=== PATIENT | male | born 1945 | race Caucasian/White ===

== ENCOUNTER → 2016-08-20 | Outpatient (CLI) | payer MEDICARE, OTHER ==
[2016-08-20 09:41] LABS: MEAN CORPUSCULAR HEMOGLOBIN 32.3 pg (27.0-33.0); MEAN CORPUSCULAR HGB CONC 33.4 g/dl (32.0-36.5); MEAN CORPUSCULAR VOLUME 96.5 fl (80.0-96.0); WHITE BLOOD COUNT 9.4 K/mm3 (4.0-10.0)
[2016-08-20 09:56] LABS: ALBUMIN 3.4 GM/DL (3.2-5.2); ALBUMIN/GLOBULIN RATIO 0.85 (1.00-1.93); ALKALINE PHOSPHATASE 113 U/L (45-117); ALT/SGPT 57 U/L (12-78); ANION GAP 8 MEQ/L (8-16); AST/SGOT 41 U/L (15-37); BILIRUBIN,TOTAL 0.9 MG/DL (0.2-1.0); BLOOD UREA NITROGEN 20 MG/DL (7-18); CARBON DIOXIDE LEVEL 28 MEQ/L (21-32); CHLORIDE LEVEL 104 MEQ/L (98-107); CHOLESTEROL LEVEL 157 MG/DL (<200); CREATININE FOR GFR 1.03 MG/DL (0.70-1.30); GLOMERULAR FILTRATION RATE > 60.0 (>42); GLUCOSE, FASTING 110 MG/DL (83-110); POTASSIUM SERUM 4.6 MEQ/L (3.5-5.1); SODIUM LEVEL 140 MEQ/L (136-145); TOTAL PROTEIN 7.4 GM/DL (6.4-8.2); TRIGLYCERIDES LEVEL 90 MG/DL (<150)
== END ==
LOC: M WUC 08:23
PROVIDERS: ATTEND Internal Medicine
DX: D69.6 Thrombocytopenia, unspecified (principal); E11.9 Type 2 diabetes mellitus without complications; E78.00 Pure hypercholesterolemia, unspecified

== ENCOUNTER → 2016-09-20 | Outpatient (CLI) | payer MEDICARE, OTHER ==
[2016-09-20 09:28] LABS: BLOOD UREA NITROGEN 21 MG/DL (7-18); CREATININE FOR GFR 1.05 MG/DL (0.70-1.30); GLOMERULAR FILTRATION RATE > 60.0 (>42)
== END ==
LOC: M WUC 08:12
PROVIDERS: ATTEND Internal Medicine Pulmonary Disease
DX: R91.8 Other nonspecific abnormal finding of lung field (principal)

== ENCOUNTER → 2016-09-30 | Outpatient (CLI) | payer MEDICARE, OTHER ==
[~2016-09-30] MED LIST: ISOVUE-370 76% 100ML VIAL (Q9967) As Ordered ONE
--- NOTE | 2016-09-30 10:28 | REP ---
CT of the chest with IV contrast: Comparison is the low-dose lung screening CT dated 04/13/2016. On the current study there is a 5 mm nodule posteriorly in the right upper lobe on image 33, unchanged in size shape or appearance from the comparison screening CT. There are no other lung masses or nodules. There is no mediastinal or hilar lymphadenopathy. There is no axillary lymphadenopathy. The thoracic aorta is unremarkable. Cardiac size normal. There is no pericardial effusion. The visualized upper abdominal contents are unremarkable except for A 1.5 cm cyst in the visualized portion of the right kidney. There is no adrenal mass. Impression: 5 mm right upper lobe lung nodule is stable from the 04/13/2016 CT. Additional follow-up for nodules this size according to Fleischner Society recommendations for a low risk patient is follow-up at 12 months, if no change, no further imaging is needed. For a high risk patient initial follow-up at 6-12 months and then again 18-24 months if there are no changes. The current study is 6 months from the original CT. Signed by Javy Franklin MD 09/30/2016 10:18 A
== END ==
LOC: M RAD 08:23
PROVIDERS: ATTEND Internal Medicine Pulmonary Disease
DX: R91.8 Other nonspecific abnormal finding of lung field (principal); R91.1 Solitary pulmonary nodule
CPT/HCPCS: 71260; Q9967

== ENCOUNTER → 2016-12-22 | Outpatient (CLI) | payer MEDICARE, OTHER ==
[2016-12-22 09:47] LABS: ALBUMIN 3.5 GM/DL (3.2-5.2); ALKALINE PHOSPHATASE 99 U/L (45-117); ALT/SGPT 40 U/L (12-78); ANION GAP 5 MEQ/L (8-16); AST/SGOT 36 U/L (15-37); BILIRUBIN,TOTAL 0.9 MG/DL (0.2-1.0); BLOOD UREA NITROGEN 14 MG/DL (7-18); CALCIUM LEVEL 9.2 MG/DL (8.8-10.2); CARBON DIOXIDE LEVEL 29 MEQ/L (21-32); CHLORIDE LEVEL 104 MEQ/L (98-107); CREATININE FOR GFR 1.13 MG/DL (0.70-1.30); GLOMERULAR FILTRATION RATE > 60.0 (>42); GLUCOSE, FASTING 148 MG/DL (83-110); POTASSIUM SERUM 4.6 MEQ/L (3.5-5.1); SODIUM LEVEL 138 MEQ/L (136-145); TOTAL PROTEIN 7.9 GM/DL (6.4-8.2)
[2016-12-22 10:10] LABS: MEAN CORPUSCULAR HEMOGLOBIN 31.5 pg (27.0-33.0); MEAN CORPUSCULAR HGB CONC 32.2 g/dl (32.0-36.5); MEAN CORPUSCULAR VOLUME 97.9 fl (80.0-96.0); RED CELL DISTRIBUTION WIDTH 13.4 % (11.5-14.5); WHITE BLOOD COUNT 8.9 K/mm3 (4.0-10.0)
== END ==
LOC: M WUC 08:02
PROVIDERS: ATTEND Internal Medicine
DX: E11.65 Type 2 diabetes mellitus with hyperglycemia (principal); D69.6 Thrombocytopenia, unspecified

== ENCOUNTER → 2017-03-21 | Outpatient (CLI) | payer MEDICARE, OTHER ==
[2017-03-21 14:29] LABS: BLOOD UREA NITROGEN 14 MG/DL (7-18); CREATININE FOR GFR 1.01 MG/DL (0.70-1.30); GLOMERULAR FILTRATION RATE > 60.0 (>42)
== END ==
LOC: M WUC 08:57
PROVIDERS: ATTEND Internal Medicine Pulmonary Disease
DX: J44.9 Chronic obstructive pulmonary disease, unspecified (principal)

== ENCOUNTER 2017-05-27 02:47 | Emergency (ER) | payer MEDICARE, OTHER ==
[~2017-05-27] VITALS: Ht 172.7 cm; Wt 111.4 kg
[2017-05-27] MEDS ORDERED: VENTAER IN (03:16)
[2017-05-27] MEDS ORDERED: INCR1INH IN (03:16)
[2017-05-27] MEDS ORDERED: TRUL0.5I SC (03:16)
[2017-05-27] MEDS ORDERED: BREO1INH INH (03:16)
[2017-05-27] MEDS ORDERED: GLIP1TAB51 PO (03:16)
[2017-05-27] MEDS ORDERED: LIPI20TA PO (03:16)
[2017-05-27] MEDS ORDERED: INSUDET SC (03:16)
[2017-05-27] MEDS ORDERED: ASPI81TA85 PO (03:16)
[2017-05-27] MEDS ORDERED: OMEP10CASR PO (03:16)
[2017-05-27] MEDS ORDERED: METF10004 PO (03:16)
[2017-05-27] MEDS ORDERED: LOPR1TAB6 PO (03:16)
[2017-05-27] MEDS ORDERED: ONDANSETRON 4MG/2ML VIAL (J2405) IV ONE (04:00)
[2017-05-27 04:21] LABS: BASO # 0.1 10^3/uL (0.0-0.2); BASO % 0.4 % (0.0-1.0); EOS # 0.1 10^3/uL (0.0-0.50); EOS % 0.6 % (0.0-3.0); IMMATURE GRANULOCYTE % 0.6 % (0-0); LYMPH # 0.9 10^3/uL (1.5-4.5); LYMPH % 6.7 % (24.0-44.0); MEAN CORPUSCULAR HEMOGLOBIN 30.3 pg (27.0-33.0); MEAN CORPUSCULAR HGB CONC 32.8 g/dl (32.0-36.5); MEAN CORPUSCULAR VOLUME 92.4 fl (80.0-96.0); MONO # 1.2 10^3/uL (0.0-0.8); MONO % 8.9 % (0.0-5.0); NEUTROPHILS # 11.6 10^3/uL (1.8-7.7); NEUTROPHILS % 82.8 % (36.0-66.0); PLATELET COUNT, AUTOMATED 56 10^3/uL (150-450); RED CELL DISTRIBUTION WIDTH 14.6 % (11.5-14.5)
[2017-05-27 04:22] LABS: IMMATURE PLATELET FRACTION % 16.5 % (0.0-10.9)
[2017-05-27 04:59] LABS: ALBUMIN 3.2 GM/DL (3.2-5.2); ALBUMIN/GLOBULIN RATIO 0.82 (1.00-1.93); BILIRUBIN,DIRECT 0.2 MG/DL (0.0-0.2); BILIRUBIN,TOTAL 0.7 MG/DL (0.2-1.0); TOTAL PROTEIN 7.1 GM/DL (6.4-8.2)
[2017-05-27 05:00] LABS: ANION GAP 10 MEQ/L (8-16); BLOOD UREA NITROGEN 25 MG/DL (7-18); CALCIUM LEVEL 8.7 MG/DL (8.8-10.2); CARBON DIOXIDE LEVEL 25 MEQ/L (21-32); CHLORIDE LEVEL 106 MEQ/L (98-107); GLOMERULAR FILTRATION RATE > 60.0 (>42); GLUCOSE, FASTING 187 MG/DL (83-110); POTASSIUM SERUM 4.4 MEQ/L (3.5-5.1); SODIUM LEVEL 141 MEQ/L (136-145)
--- NOTE | 2017-05-27 05:10 | REPUSA ---
CLINICAL HISTORY: Dizziness. TECHNIQUE: Multiple axial CT images were obtained through the brain without IV contrast material. COMMENTS: There is normal configuration of sella turcica. There are no intra or extra-axial collections. There is no mass effect or midline shift. There is no evidence of hematoma formation. No hydrocephalus is p resent. The ventricles are symmetrical. No abnormal calcifications are present. There is diffuse age-appropriate cerebellar and cerebral atrophy with proportionally dilated ventricl es and cortical sulci. There are bilateral periventricular and subcortical white matter hypolucencies compatible with mild c hronic microvascular disease. Otherwise, no significant focal abnormalities are seen either in the posterior fossa or supratentoria l compartment. IMPRESSION: 1. Age-appropriate cerebellar and cerebral atrophy. 2. Mild chronic microvascular disease. 3. No evidence of acute intracranial pathology. Thank you for your kind referral of this patient.
--- NOTE | 2017-05-27 08:10 | REP ---
Clinical: Chest pain . Comparison: 02/11/2009 . Findings: The mediastinum and cardiac silhouette are stable and within normal limits for portable technique. The lung lopez demonstrate diffuse chronic interstitial changes and superimposed atelectasis cannot be excluded. No effusion, or pneumothorax. Skeletal structures are intact. Impression: Chronic changes with possible superimposed atelectasis. Signed by Jr Vega MD 05/27/2017 08:01 A
--- NOTE | 2017-05-27 09:46 | ECGEPIP ---
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
--- NOTE | 2017-05-27 11:14 | ECGEPIP ---
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
[2017-05-27 11:24] VITALS: BP 125/58
== END 2017-05-27 11:53 | disposition home or self-care (01) ==
LOC: EDBD 02:47 → M ED 02:47
DX: R55 Syncope and collapse (principal); R53.1 Weakness; I25.10 Atherosclerotic heart disease of native coronary artery without angina pectoris; I25.2 Old myocardial infarction; I45.10 Unspecified right bundle-branch block; I44.4 Left anterior fascicular block; Z79.899 Other long term (current) drug therapy; Z79.82 Long term (current) use of aspirin; Z79.4 Long term (current) use of insulin
CPT/HCPCS: 36415; 70450; 71010; 80048; 80076; 81001; 82550; 82553; 83690; 84443; 84484; 85025; 85049; 85055; 87088; 87186; 93005; 93041; 94760; 96374; 99285; J2405

== ENCOUNTER 2017-05-29 16:14 | Emergency (ER) | payer MEDICARE, OTHER ==
[~2017-05-29] VITALS: Ht 179.1 cm; Wt 111.4 kg
[~2017-05-29 16:14] MED LIST changes: +ASPI81TA85 PO; +BREO1INH INH; +GLIP1TAB51 PO; +INCR1INH IN; +INSUDET SC; -ISOVUE-370 76% 100ML VIAL (Q9967) As Ordered ONE; +LIPI20TA PO; +LOPR1TAB6 PO; +METF10004 PO; +OMEP10CASR PO; +TRUL0.5I SC; +VENTAER IN
[2017-05-29] MEDS ORDERED: METF750T (16:28)
[2017-05-29] MEDS ORDERED: BREO1INH3 (16:28)
[2017-05-29] MEDS ORDERED: MECLIZINE 25 MG TABLET PO ONE (17:00)
[2017-05-29] MEDS ORDERED: NS 1,000 ML IV SCH (17:00)
[2017-05-29 17:12] LABS: BASO % 0.5 % (0.0-1.0); EOS # 0.2 10^3/uL (0.0-0.50); EOS % 1.8 % (0.0-3.0); IMMATURE GRANULOCYTE % 0.5 % (0-0); LYMPH # 1.3 10^3/uL (1.5-4.5); LYMPH % 14.5 % (24.0-44.0); MEAN CORPUSCULAR HEMOGLOBIN 30.5 pg (27.0-33.0); MEAN CORPUSCULAR HGB CONC 33.1 g/dl (32.0-36.5); MONO # 0.9 10^3/uL (0.0-0.8); MONO % 10.4 % (0.0-5.0); NEUTROPHILS # 6.3 10^3/uL (1.8-7.7); NEUTROPHILS % 72.3 % (36.0-66.0); RED CELL DISTRIBUTION WIDTH 14.7 % (11.5-14.5); WHITE BLOOD COUNT 8.7 10^3/uL (4.0-10.0)
[2017-05-29 17:25] LABS: PLATELET COUNT, AUTOMATED 65 10^3/uL (150-450)
[2017-05-29 17:27] LABS: IMMATURE PLATELET FRACTION % 14.6 % (0.0-10.9)
[2017-05-29 17:29] LABS: ALBUMIN 3.1 GM/DL (3.2-5.2); ALBUMIN/GLOBULIN RATIO 0.72 (1.00-1.93); ALKALINE PHOSPHATASE 104 U/L (45-117); ALT/SGPT 50 U/L (12-78); ANION GAP 6 MEQ/L (8-16); AST/SGOT 44 U/L (7-37); BILIRUBIN,DIRECT 0.2 MG/DL (0.0-0.2); BILIRUBIN,TOTAL 0.8 MG/DL (0.2-1.0); BLOOD UREA NITROGEN 18 MG/DL (7-18); CALCIUM LEVEL 8.6 MG/DL (8.8-10.2); CARBON DIOXIDE LEVEL 29 MEQ/L (21-32); CHLORIDE LEVEL 104 MEQ/L (98-107); CREATININE FOR GFR 1.05 MG/DL (0.70-1.30); GLOMERULAR FILTRATION RATE > 60.0 (>42); GLUCOSE, FASTING 160 MG/DL (83-110); POTASSIUM SERUM 4.1 MEQ/L (3.5-5.1); SODIUM LEVEL 139 MEQ/L (136-145); TOTAL PROTEIN 7.4 GM/DL (6.4-8.2)
--- NOTE | 2017-05-29 18:15 | ECGEPIP ---
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
--- NOTE | 2017-05-29 20:00 | REPUSA ---
MRI of the brain. Clinical history: memory problems. Technique: Multiecho multiplanar MRI images of the brain were obtained without administration of cont rast. Diffusion weighted images with ADC mapping was also obtained. Findings: The ventricles and sulci are symmetric bilaterally. The brain parenchyma demonstrates periventricular and subcortical white matter T2 hyperintense changes. There is no midline shift, mass effect, or ext ra-axial fluid collection. The midline intracranial structures do not demonstrate any gross abnormali ties. The cervical cranial junction is intact. The orbits are unremarkable. The visualized paranasal sinuses and mastoid air cells are clear. The osseous structures and superficial soft tissues are unre markable. The vascular structures demonstrate appropriate flow voids. Impression: No acute infarct or hemorrhage. Mild chronic small vessel ischemic disease.
--- NOTE | 2017-05-29 20:00 | REPUSA ---
Clinical history: neurological symptoms. Technique: Bytb-pe-[id number] MRA images of the brain were obtained without administration of contrast. 3 -D MIP images were also obtained. Findings: There is thrombosis of the left vertebral artery. Minimal reflux of arterial blood flow is seen in the distal left vertebral artery just proximal to the anastomosis from the base of her artery . The other vascular structures extending from the distal carotid arterial systems, through the circl e of Torres, demonstrate normal caliber and contour. There is no evidence of aneurysm, stenosis, or t hrombosis. Impression: 1. Suspected thrombosis of the majority of the left vertebral artery as described. 2. The intracerebral arteries including the tribe of Torres appears unremarkable.
[2017-05-30 01:03] VITALS: BP 129/86
--- NOTE | 2017-05-30 01:50 | REPUSA ---
HISTORY: Dizziness. COMPARISON: None. TECHNIQUE: Magnetic resonance angiography of the neck was performed at 1.5T with 2-D axial time-of-fl ight images and 3-D coronal ucdv-li-tjaecw images. Images are retrospectively targeted and reformatte d in three dimensions according to standard protocol. Stenoses were measured according to NASCET hernando oquendo. Source images were reviewed. RIGHT CAROTID ARTERIES: Normal right common carotid artery (CCA). Normal right common carotid bulb. 20% narrowing of the orig in of the right internal carotid (ICA) artery. Normal remaining visualized cervical portion of the ri ght internal carotid artery. Normal origin of the right external carotid artery (ECA). LEFT CAROTID ARTERIES: Normal left common carotid artery (CCA). Normal left common carotid bulb. 30% narrowing of the origin of the left internal carotid (ICA) artery. Normal remaining visualized cervical portion of the left internal carotid artery. Normal origin of the left external carotid artery (ECA). VERTEBRAL ARTERIES: Normal antegrade flow in the right vertebral artery without a hemodynamically significant stenosis. The absence of flow related enhancement of the left vertebral artery just above its takeoff. IMPRESSION: Occluded left vertebral artery. Atherosclerosis with mild bilateral narrowing of the origins of the internal carotid arteries as deta iled above.
[2017-05-30] MEDS ORDERED: MECL-68 PO (01:59)
== END 2017-05-30 02:37 | disposition home or self-care (01) ==
LOC: M ED 16:14
DX: I65.02 Occlusion and stenosis of left vertebral artery (principal); I10 Essential (primary) hypertension; E11.9 Type 2 diabetes mellitus without complications; J44.9 Chronic obstructive pulmonary disease, unspecified; Z79.51 Long term (current) use of inhaled steroids; Z79.84 Long term (current) use of oral hypoglycemic drugs; Z79.82 Long term (current) use of aspirin; Z79.899 Other long term (current) drug therapy; Z79.4 Long term (current) use of insulin; Z82.49 Family history of ischemic heart disease and other diseases of the circulatory system; Z87.891 Personal history of nicotine dependence
CPT/HCPCS: 36415; 70544; 70547; 70551; 80048; 80076; 82140; 82550; 82553; 84443; 84484; 85025; 85049; 85055; 93005; 93041; 94760; 96360; 96361; 99285; G0480

== ENCOUNTER → 2017-06-07 | Outpatient (REF) | payer MEDICARE, OTHER ==
[~2017-06-07] MED LIST changes: +BREO1INH3; +MECL-68 PO; +METF750T
== END ==
LOC: M SFHCPLAZ 15:25
PROVIDERS: ATTEND Internal Medicine
DX: E11.65 Type 2 diabetes mellitus with hyperglycemia (principal)

== ENCOUNTER → 2017-09-30 | Outpatient (CLI) | payer MEDICARE, OTHER ==
[2017-09-30 11:29] LABS: VITAMIN B12 LEVEL 457 PG/ML
== END ==
LOC: M WUC 08:08
DX: E03.9 Hypothyroidism, unspecified (principal); E53.9 Vitamin B deficiency, unspecified

== ENCOUNTER → 2017-09-30 | Outpatient (CLI) | payer MEDICARE, OTHER ==
[2017-09-30 09:13] LABS: HEMATOCRIT 45.7 % (42.0-52.0); MEAN CORPUSCULAR HEMOGLOBIN 31.1 pg (27.0-33.0); MEAN CORPUSCULAR HGB CONC 32.8 g/dl (32.0-36.5); MEAN CORPUSCULAR VOLUME 94.6 fl (80.0-96.0); RED BLOOD COUNT 4.83 10^6/uL (4.30-6.10); RED CELL DISTRIBUTION WIDTH 14.6 % (11.5-14.5); WHITE BLOOD COUNT 9.4 10^3/uL (4.0-10.0)
[2017-09-30 09:14] LABS: PLATELET COUNT, AUTOMATED 72 10^3/uL (150-450)
[2017-09-30 09:15] LABS: IMMATURE PLATELET FRACTION % 15.1 % (0.0-10.9)
[2017-09-30 10:06] LABS: ALBUMIN 3.2 GM/DL (3.2-5.2); ALBUMIN/GLOBULIN RATIO 0.76 (1.00-1.93); ALKALINE PHOSPHATASE 130 U/L (45-117); ALT/SGPT 45 U/L (12-78); ANION GAP 7 MEQ/L (8-16); AST/SGOT 47 U/L (7-37); BILIRUBIN,TOTAL 0.9 MG/DL (0.2-1.0); BLOOD UREA NITROGEN 17 MG/DL (7-18); CALCIUM LEVEL 8.7 MG/DL (8.8-10.2); CARBON DIOXIDE LEVEL 26 MEQ/L (21-32); CHLORIDE LEVEL 107 MEQ/L (98-107); CHOLESTEROL LEVEL 156 MG/DL (<200); CHOLESTEROL RISK RATIO 2.888 (<5); CREATININE FOR GFR 1.04 MG/DL (0.70-1.30); GLOMERULAR FILTRATION RATE > 60.0 (>42); GLUCOSE, FASTING 73 MG/DL (70-100); HDL CHOLESTEROL 54 MG/DL (>40); NON-HDL-C 102 MG/DL; POTASSIUM SERUM 4.5 MEQ/L (3.5-5.1); SODIUM LEVEL 140 MEQ/L (136-145); TOTAL PROTEIN 7.4 GM/DL (6.4-8.2); TRIGLYCERIDES LEVEL 70 MG/DL (<150)
[2017-09-30 10:18] LABS: MALB URINE SIEMENS 12.7 MG/L; MAU/CREAT RATIO 7.4 MCG/MG (0.0-30.0)
[2017-09-30 11:39] LABS: ESTIMATED AVERAGE GLUCOSE 140 MG/DL (60-110); HEMOGLOBIN A1c 6.5 %
== END ==
LOC: M WUC 08:04
DX: G47.30 Sleep apnea, unspecified (principal); D69.6 Thrombocytopenia, unspecified; E11.65 Type 2 diabetes mellitus with hyperglycemia; E78.00 Pure hypercholesterolemia, unspecified; E03.9 Hypothyroidism, unspecified; E53.9 Vitamin B deficiency, unspecified
CPT/HCPCS: 82746

== ENCOUNTER 2018-01-07 10:37 | Emergency (ER) | payer MEDICARE, OTHER ==
[2018-01-07] MEDS: PHENYLEPHRINE 0.5% NASAL SPRAY 15 ML (11:30)
[2018-01-07 11:49] LABS: BASO % 0.4 % (0.0-1.0); EOS # 0.2 10^3/uL (0.0-0.50); EOS % 2.3 % (0.0-3.0); HEMATOCRIT 43.7 % (42.0-52.0); HEMOGLOBIN 14.3 g/dl (13.5-17.5); IMMATURE GRANULOCYTE % 0.3 % (0-3.0); LYMPH # 0.8 10^3/uL (1.5-4.5); LYMPH % 8.6 % (24.0-44.0); MEAN CORPUSCULAR HEMOGLOBIN 32.1 pg (27.0-33.0); MEAN CORPUSCULAR HGB CONC 32.7 g/dl (32.0-36.5); MONO % 10.4 % (0.0-5.0); NEUTROPHILS # 7.3 10^3/uL (1.8-7.7); RED BLOOD COUNT 4.46 10^6/uL (4.30-6.10); RED CELL DISTRIBUTION WIDTH 16.4 % (11.5-14.5); WHITE BLOOD COUNT 9.3 10^3/uL (4.0-10.0)
[2018-01-07 11:51] LABS: PLATELET COUNT, AUTOMATED 60 10^3/uL (150-450)
[2018-01-07 11:52] LABS: IMMATURE PLATELET FRACTION % 12.4 % (0.0-10.9)
[2018-01-07] MEDS: NS 1,000 ML IV (13:00)
[2018-01-07 14:04] LABS: ALBUMIN 2.9 GM/DL (3.2-5.2); ALBUMIN/GLOBULIN RATIO 0.62 (1.00-1.93); ALKALINE PHOSPHATASE 154 U/L (45-117); ALT/SGPT 73 U/L (12-78); ANION GAP 7 MEQ/L (8-16); AST/SGOT 56 U/L (7-37); BILIRUBIN,DIRECT 0.3 MG/DL (0.0-0.2); BILIRUBIN,TOTAL 0.9 MG/DL (0.2-1.0); BLOOD UREA NITROGEN 31 MG/DL (7-18); CALCIUM LEVEL 8.9 MG/DL (8.8-10.2); CARBON DIOXIDE LEVEL 29 MEQ/L (21-32); CHLORIDE LEVEL 107 MEQ/L (98-107); GLOMERULAR FILTRATION RATE > 60.0 (>42); GLUCOSE, FASTING 94 MG/DL (70-100); POTASSIUM SERUM 4.8 MEQ/L (3.5-5.1); SODIUM LEVEL 143 MEQ/L (136-145); TOTAL PROTEIN 7.6 GM/DL (6.4-8.2)
== END 2018-01-07 14:55 | disposition home or self-care (01) ==
LOC: M ED 10:37
DX: R04.0 Epistaxis (principal); D69.6 Thrombocytopenia, unspecified; I10 Essential (primary) hypertension; E11.9 Type 2 diabetes mellitus without complications; K21.9 Gastro-esophageal reflux disease without esophagitis; E78.9 Disorder of lipoprotein metabolism, unspecified; Z87.891 Personal history of nicotine dependence; Z79.899 Other long term (current) drug therapy; Z79.02 Long term (current) use of antithrombotics/antiplatelets; Z79.82 Long term (current) use of aspirin; Z79.51 Long term (current) use of inhaled steroids; Z79.4 Long term (current) use of insulin
CPT/HCPCS: 70450

== ENCOUNTER → 2018-02-10 | Outpatient (CLI) | payer MEDICARE ==
[2018-02-10 12:11] LABS: HEMATOCRIT 43.1 % (42.0-52.0); MEAN CORPUSCULAR HEMOGLOBIN 32.6 pg (27.0-33.0); MEAN CORPUSCULAR HGB CONC 32.5 g/dl (32.0-36.5); MEAN CORPUSCULAR VOLUME 100.2 fl (80.0-96.0); RED CELL DISTRIBUTION WIDTH 14.9 % (11.5-14.5); WHITE BLOOD COUNT 9.5 10^3/uL (4.0-10.0)
[2018-02-10 12:12] LABS: PLATELET COUNT, AUTOMATED 65 10^3/uL (150-450)
[2018-02-10 12:13] LABS: IMMATURE PLATELET FRACTION % 18.1 % (0.0-10.9)
[2018-02-10 12:31] LABS: ALBUMIN/GLOBULIN RATIO 0.61 (1.00-1.93); ALKALINE PHOSPHATASE 117 U/L (45-117); ALT/SGPT 70 U/L (12-78); ANION GAP 7 MEQ/L (8-16); AST/SGOT 63 U/L (7-37); BILIRUBIN,TOTAL 0.9 MG/DL (0.2-1.0); BLOOD UREA NITROGEN 22 MG/DL (7-18); CALCIUM LEVEL 9.3 MG/DL (8.8-10.2); CARBON DIOXIDE LEVEL 28 MEQ/L (21-32); CHLORIDE LEVEL 106 MEQ/L (98-107); CREATININE FOR GFR 0.98 MG/DL (0.70-1.30); GLOMERULAR FILTRATION RATE > 60.0 (>42); GLUCOSE, FASTING 79 MG/DL (70-100); POTASSIUM SERUM 4.6 MEQ/L (3.5-5.1); SODIUM LEVEL 141 MEQ/L (136-145); TOTAL PROTEIN 7.9 GM/DL (6.4-8.2)
[2018-02-10 12:33] LABS: ESTIMATED AVERAGE GLUCOSE 123 MG/DL (60-110); HEMOGLOBIN A1c 5.9 %
== END ==
LOC: M WUC 08:03
DX: G47.30 Sleep apnea, unspecified (principal); E11.65 Type 2 diabetes mellitus with hyperglycemia; D69.6 Thrombocytopenia, unspecified
CPT/HCPCS: 80053

== ENCOUNTER → 2018-07-20 | Outpatient (CLI) | payer MEDICARE, OTHER ==
[~2018-07-20] MED LIST changes: +ARIC1TAB2 PO; -BREO1INH3; +BREO1INH3 INH; +CITA20TA4 PO; +CLOP75TA2 PO; +GLIP10TA18 PO; -GLIP1TAB51 PO; +LEVE1INJ5; +METO1TAB7 PO; +RANI300T; -VENTAER IN; +VENTAER INH; +ZANT300T9 PO
[2018-07-20 10:32] LABS: ALBUMIN 3.1 GM/DL (3.2-5.2); ALT/SGPT 81 U/L (12-78); BILIRUBIN,TOTAL 0.9 MG/DL (0.2-1.0); BLOOD UREA NITROGEN 18 MG/DL (7-18); CALCIUM LEVEL 8.9 MG/DL (8.8-10.2); CARBON DIOXIDE LEVEL 27 MEQ/L (21-32); CHLORIDE LEVEL 104 MEQ/L (98-107); CREATININE FOR GFR 0.97 MG/DL (0.70-1.30); GLOMERULAR FILTRATION RATE > 60.0 (>42); GLUCOSE, FASTING 103 MG/DL (70-100); POTASSIUM SERUM 4.2 MEQ/L (3.5-5.1); SODIUM LEVEL 140 MEQ/L (136-145); TOTAL PROTEIN 7.1 GM/DL (6.4-8.2)
[2018-07-20 10:46] LABS: MALB URINE SIEMENS 22.6 MG/L; MAU/CREAT RATIO 14.2 MCG/MG (0.0-30.0)
[2018-07-20 11:21] LABS: HEMOGLOBIN A1c 6.7 %
== END ==
LOC: M WUC 08:05
PROVIDERS: ATTEND Internal Medicine
DX: E11.65 Type 2 diabetes mellitus with hyperglycemia (principal)

== ENCOUNTER → 2018-08-09 | Outpatient (REF) | payer MEDICARE, OTHER ==
[2018-08-09 15:42] LABS: HEMATOCRIT 48.9 % (42.0-52.0); HEMOGLOBIN 15.6 g/dl (13.5-17.5); MEAN CORPUSCULAR HEMOGLOBIN 32.3 pg (27.0-33.0); MEAN CORPUSCULAR HGB CONC 31.9 g/dl (32.0-36.5); MEAN CORPUSCULAR VOLUME 101.2 fl (80.0-96.0); RED BLOOD COUNT 4.83 10^6/uL (4.30-6.10); WHITE BLOOD COUNT 15.8 10^3/uL (4.0-10.0)
[2018-08-09 15:59] LABS: BLOOD UREA NITROGEN 18 MG/DL (7-18); CALCIUM LEVEL 8.9 MG/DL (8.8-10.2); CARBON DIOXIDE LEVEL 27 MEQ/L (21-32); CHLORIDE LEVEL 101 MEQ/L (98-107); CREATININE FOR GFR 1.05 MG/DL (0.70-1.30); GLOMERULAR FILTRATION RATE > 60.0 (>42); GLUCOSE, FASTING 115 MG/DL (70-100); MAGNESIUM LEVEL 1.9 MG/DL (1.8-2.4); POTASSIUM SERUM 3.5 MEQ/L (3.5-5.1); SODIUM LEVEL 138 MEQ/L (136-145)
[2018-08-09 16:01] LABS: PLATELET COUNT, AUTOMATED 80 10^3/uL (150-450)
[2018-08-09 16:24] LABS: CLOSTRIDIUM DIFFICILE PCR NEGATIVE (NEGATIVE)
== END ==
LOC: M SFHCPLAZ 12:11
PROVIDERS: ATTEND Internal Medicine
DX: R19.7 Diarrhea, unspecified (principal); E86.0 Dehydration
CPT/HCPCS: 36415; 80048; 83735; 85027; 85049; 85055; 87493; G0463

== ENCOUNTER → 2018-12-11 | Outpatient (CLI) | payer MEDICARE, OTHER ==
[~2018-12-11] MED LIST changes: -CITA20TA4 PO; +CITA20TA6 PO
[2018-12-11 13:34] LABS: ALBUMIN 2.8 GM/DL (3.2-5.2); ALT/SGPT 60 U/L (12-78); BILIRUBIN,TOTAL 1.2 MG/DL (0.2-1.0); BLOOD UREA NITROGEN 20 MG/DL (7-18); CALCIUM LEVEL 8.5 MG/DL (8.8-10.2); CARBON DIOXIDE LEVEL 30 MEQ/L (21-32); CHLORIDE LEVEL 105 MEQ/L (98-107); CHOLESTEROL LEVEL 119 MG/DL (<200); CHOLESTEROL RISK RATIO 2.333 (<5); CREATININE FOR GFR 1.03 MG/DL (0.70-1.30); GLOMERULAR FILTRATION RATE > 60.0 (>42); GLUCOSE, FASTING 94 MG/DL (70-100); HDL CHOLESTEROL 51 MG/DL (>40); LDL CHOLESTEROL 57 MG/DL (<100); MAGNESIUM LEVEL 1.8 MG/DL (1.8-2.4); NON-HDL-C 68 MG/DL; POTASSIUM SERUM 3.7 MEQ/L (3.5-5.1); SODIUM LEVEL 139 MEQ/L (136-145); TOTAL PROTEIN 7.5 GM/DL (6.4-8.2); TRIGLYCERIDES LEVEL 57 MG/DL (<150)
[2018-12-11 13:35] LABS: BASO % 0.4 % (0.0-1.0); EOS # 0.4 10^3/uL (0.0-0.50); EOS % 4.3 % (0.0-3.0); HEMOGLOBIN 15.1 g/dl (13.5-17.5); MEAN CORPUSCULAR HEMOGLOBIN 33.9 pg (27.0-33.0); MEAN CORPUSCULAR HGB CONC 32.8 g/dl (32.0-36.5); MEAN CORPUSCULAR VOLUME 103.4 fl (80.0-96.0); MONO % 10.4 % (0.0-5.0); NEUTROPHILS # 7.2 10^3/uL (1.8-7.7); NEUTROPHILS % 74.6 % (36.0-66.0); RED BLOOD COUNT 4.45 10^6/uL (4.30-6.10); WHITE BLOOD COUNT 9.6 10^3/uL (4.0-10.0)
[2018-12-11 13:50] LABS: PLATELET COUNT, AUTOMATED 51 10^3/uL (150-450)
[2018-12-11 14:15] LABS: HEMOGLOBIN A1c 6.2 %
== END ==
LOC: M WUC 08:27
PROVIDERS: ATTEND Internal Medicine
DX: D69.6 Thrombocytopenia, unspecified (principal); E11.65 Type 2 diabetes mellitus with hyperglycemia; E78.00 Pure hypercholesterolemia, unspecified; I25.10 Atherosclerotic heart disease of native coronary artery without angina pectoris

== ENCOUNTER 2019-02-19 12:20 | Emergency (ER) | payer MEDICARE, OTHER ==
[~2019-02-19 12:20] MED LIST changes: -INCR1INH IN; +INCR1INH INH; -MECL-68 PO; +MECL1TAB31 PO; -METF750T; +METF750T36
[2019-02-19] MEDS ORDERED: POTA10CA32 PO (12:35)
[2019-02-19 13:08] LABS: BASO # 0.1 10^3/uL (0.0-0.2); BASO % 0.5 % (0.0-1.0); EOS # 0.4 10^3/uL (0.0-0.50); EOS % 2.9 % (0.0-3.0); HEMATOCRIT 44.6 % (42.0-52.0); HEMOGLOBIN 15.1 g/dl (13.5-17.5); LYMPH # 0.9 10^3/uL (1.5-4.5); LYMPH % 6.7 % (24.0-44.0); MEAN CORPUSCULAR HEMOGLOBIN 34.2 pg (27.0-33.0); MEAN CORPUSCULAR HGB CONC 33.9 g/dl (32.0-36.5); MEAN CORPUSCULAR VOLUME 101.1 fl (80.0-96.0); MONO # 1.4 10^3/uL (0.0-0.8); MONO % 10.1 % (0.0-5.0); NEUTROPHILS % 78.7 % (36.0-66.0); RED BLOOD COUNT 4.41 10^6/uL (4.30-6.10)
[2019-02-19 13:09] LABS: PLATELET COUNT, AUTOMATED 61 10^3/uL (150-450)
[2019-02-19] MEDS ORDERED: DERMABOND TOPICAL SKIN ADHESIVE TOP ONE (13:15)
[2019-02-19 13:20] LABS: INR 1.09; PARTIAL THROMBOPLASTIN TIME 32.1 SECONDS (25.0-38.4); PROTHROMBIN TIME 13.8 SECONDS (11.8-14.0)
[2019-02-19 13:31] LABS: BLOOD UREA NITROGEN 18 MG/DL (7-18); CALCIUM LEVEL 8.2 MG/DL (8.8-10.2); CARBON DIOXIDE LEVEL 21 MEQ/L (21-32); CHLORIDE LEVEL 108 MEQ/L (98-107); CK-MB VALUE MASS 2.2 NG/ML (<3.6); CPK CREATINE PHOSPHOKINASE 112 U/L (39-308); CREATININE FOR GFR 0.92 MG/DL (0.70-1.30); GLOMERULAR FILTRATION RATE > 60.0 (>42); GLUCOSE, FASTING 117 MG/DL (70-100); MB/CK RELATIVE INDEX 1.96 (< OR =4); POTASSIUM SERUM 3.8 MEQ/L (3.5-5.1); SODIUM LEVEL 135 MEQ/L (136-145); TROPONIN I 0.06 NG/ML (< 0.10)
[2019-02-19] MEDS ORDERED: ADACEL/BOOSTRIX VACCINE (DIPHTH/PERTUSS/ACELL/TETANUS)0.5ML SYR (90715) IM ONE (13:45)
--- NOTE | 2019-02-19 14:17 | REP ---
CT of the maxillofacial bones without contrast Indication: Fall. Comparison: CT head of the same date. Technique: Axial CT of the maxillofacial bones was performed without contrast. Bone reformatted images were provided in the axial, coronal and sagittal planes. Findings: There is comminuted fracture of the right nasal bone. The anterior fracture fragment is angulated to the left. There is partial opacification of the anterior nasal passages. There is thickening of the overlying soft tissues. There is rightward deviation of the nasal septum. There is decreased opacification of the nasopharynx when compared to the same day CT head. There is buckle deformity of the lateral wall of the left maxillary sinus. There is dependent opacification within both maxillary sinuses. There is minimal dependent opacification of the right sphenoid sinus. Remaining bones of the face including the zygomas, freeman of the orbits, and mandible are intact. The pterygoid plates are intact. Suboptimal evaluation of the teeth secondary to streak artifact from dental amalgam. Impression: Fracture of the right nasal bone with overlying soft tissue swelling, presumably acute. Correlation can be made for point tenderness and nasal hematoma. Buckle deformity of the lateral wall of the left maxillary sinus, age indeterminate. Partial opacification of the maxillary sinuses and right sphenoid sinus. Electronically Signed by Tamar Pacheco MD 02/19/2019 02:09 P
--- NOTE | 2019-02-19 14:29 | REP ---
CT of the chest without IV contrast: Comparison is 09/30/2016. There is no pneumothorax or hemothorax. The patchy confluent areas of increased density in the lower lobes and left upper lobe as an interval change. This is nonspecific and could represent progressive fibrosis, acute infiltrates or possibly pulmonary contusion, or combination of these. There is no mediastinal hematoma. The unenhanced thoracic aorta is unremarkable. Cardiac size is upper normal. There is no pericardial effusion. There is questionably a nondisplaced fracture at the sternomanubrial junction. This should be correlated with clinical point tenderness. No vertebral fractures are identified. No clavicle, scapula, or rib fractures are identified. Impression: There are new patchy confluent areas of increased density in the lower lobes and left upper lobe as an interval change. These are nonspecific and likely represent progressive fibrosis, although acute infiltrates or pulmonary contusions cannot be entirely discounted. There is no hemothorax. There is no mediastinal hematoma. No pericardial effusion. No pneumothorax. There is questionably a nondisplaced fracture of the sternum at the sternomanubrial junction. This should be correlated with clinical point tenderness. No other fractures are identified. Electronically Signed by Javy Franklin MD 02/19/2019 02:20 P
[2019-02-19] MEDS ORDERED: PERC5TAB12 PO (15:59)
--- NOTE | 2019-02-19 16:22 | REP ---
CT of the cervical spine without contrast Indication: Head injury. Comparison: None Technique: Axial CT of the cervical spine was performed without contrast. Axial coronal and sagittal bone reformatted images were provided. Findings: There is no evidence of acute fracture or subluxation within the cervical spine. The craniocervical junction is intact. There is extensive multilevel degenerative changes including multilevel disc osteophyte complexes, the space narrowing and facet arthropathy., worse at C4-C5 and C5-C6 with spinal canal narrowing. There is multilevel bridging anterior osteophyte formation. The paraspinal soft tissues are within normal limits. Note is made of opacification within the nasopharynx. Impression: No acute fracture or subluxation of the cervical spine. Extensive multilevel cervical spondylosis, most notably at C4-C5 and C5-C6 with narrowing of the spinal canal. Note is made of opacification of the nasal passages and fluid within the maxillary sinuses. Electronically Signed by Tamar Pacheco MD 02/19/2019 01:13 P
--- NOTE | 2019-02-19 16:23 | REP ---
CT of the head without contrast Clinical indication: Head injury. Comparison: CT head 01/07/2018. Technique: Axial CT of the head was performed without contrast. Findings: There is no visible soft tissue swelling or calvarial fracture. There is no evidence of acute intracranial hemorrhage. There are a similar hypodensities within the. Ventricular white matter which are nonspecific but suggestive of microvascular ischemic disease. There is similar cerebral volume loss. The ventricles are symmetric. There is no midline shift. The basal cisterns are patent. There are intracranial vascular calcifications. There is fluid within the maxillary sinuses, and nasopharynx and nasal passages. Facial bones are not assessed. The mastoid air cells are clear. Impression: No visible soft tissue swelling or calvarial fracture. Opacification of the nasal pharynx and the nasal passages, raise concern for nasal fracture. The nasal bones are not assessed. No acute intracranial hemorrhage. Electronically Signed by Tamar Pacheco MD 02/19/2019 01:06 P
[2019-02-19 16:25] VITALS: BP 97/64
--- NOTE | 2019-02-19 20:46 | ECGEPIP ---
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
--- NOTE | 2019-02-20 07:14 | ED PDOC ---
Post-Departure Follow-Up dr steward faxed formalreport of ct head, c spine, chest for fu Jeancarlos De La Cruz MD Feb 20, 2019 07:14
[2019-02-23] MEDS ORDERED: ACET-908 PO (13:01)
[2019-02-23] MEDS ORDERED: ALBU83IN INH (13:01)
== END 2019-02-19 16:28 | disposition home or self-care (01) ==
LOC: M ED 12:20
DX: S02.2XXA Fracture of nasal bones, initial encounter for closed fracture (principal); S22.20XA Unspecified fracture of sternum, initial encounter for closed fracture; S02.401A Maxillary fracture, unspecified side, initial encounter for closed fracture; S01.21XA Laceration without foreign body of nose, initial encounter; W19.XXXA Unspecified fall, initial encounter; Y92.511 Restaurant or cafe as the place of occurrence of the external cause; Y93.9 Activity, unspecified; Y99.9 Unspecified external cause status; R00.0 Tachycardia, unspecified; I45.10 Unspecified right bundle-branch block; I44.4 Left anterior fascicular block; M47.812 Spondylosis without myelopathy or radiculopathy, cervical region; R04.0 Epistaxis; I51.9 Heart disease, unspecified; E11.9 Type 2 diabetes mellitus without complications; I10 Essential (primary) hypertension; R26.81 Unsteadiness on feet; Z87.891 Personal history of nicotine dependence; Z79.899 Other long term (current) drug therapy

== ENCOUNTER 2019-02-25 05:46 | Inpatient (IN) | payer MEDICARE, OTHER ==
[~2019-02-25] VITALS: Ht 177.8 cm; Wt 90.1 kg
[~2019-02-25 05:46] MED LIST changes: +ACET-908 PO; +ALBU83IN INH; +PERC5TAB12 PO; +POTA10CA32 PO
[2019-02-25] MEDS ORDERED: NS 1,000 ML IV ONE (06:45)
[2019-02-25 07:03] LABS: BASO # 0.1 10^3/uL (0.0-0.2); BASO % 0.5 % (0.0-1.0); EOS # 0.9 10^3/uL (0.0-0.50); EOS % 7.6 % (0.0-3.0); HEMOGLOBIN 12.1 g/dl (13.5-17.5); LYMPH # 1.7 10^3/uL (1.5-5.0); LYMPH % 14.5 % (24.0-44.0); MEAN CORPUSCULAR HGB CONC 32.7 g/dl (32.0-36.5); MEAN CORPUSCULAR VOLUME 103.9 fl (80.0-96.0); MONO # 1.4 10^3/uL (0.0-0.8); MONO % 11.8 % (0.0-5.0); NEUTROPHILS # 7.7 10^3/uL (1.5-8.5); NEUTROPHILS % 64.9 % (36.0-66.0); RED BLOOD COUNT 3.56 10^6/uL (4.30-6.10); WHITE BLOOD COUNT 11.9 10^3/uL (4.0-10.0)
--- NOTE | 2019-02-25 07:21 | ECGEPIP ---
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
[2019-02-25 07:22] LABS: ALBUMIN 2.4 GM/DL (3.2-5.2); ALT/SGPT 51 U/L (12-78); BILIRUBIN,DIRECT 0.4 MG/DL (0.0-0.2); BILIRUBIN,TOTAL 1.3 MG/DL (0.2-1.0); BLOOD UREA NITROGEN 18 MG/DL (7-18); CALCIUM LEVEL 7.9 MG/DL (8.8-10.2); CARBON DIOXIDE LEVEL 24 MEQ/L (21-32); CHLORIDE LEVEL 107 MEQ/L (98-107); GLOMERULAR FILTRATION RATE > 60.0 (>42); GLUCOSE, FASTING 130 MG/DL (70-100); NT-PRO BNP 124 PG/ML (<125); POTASSIUM SERUM 4.3 MEQ/L (3.5-5.1); SODIUM LEVEL 139 MEQ/L (136-145); TOTAL PROTEIN 6.6 GM/DL (6.4-8.2)
[2019-02-25 07:23] LABS: PLATELET COUNT, AUTOMATED 74 10^3/uL (150-450)
--- NOTE | 2019-02-25 08:19 | REP ---
Clinical: Bibasilar rales. Technique: PA and lateral. Comparison: 05/27/2017 Findings: Mediastinum and cardiac silhouette are stable. Lung lopez demonstrate diffuse chronic changes related to COPD and interstitial disease. Superimposed lower lobe infiltrates cannot be excluded. No effusion. No pneumothorax. Skeletal structures appear grossly intact. Impression: Chronic COPD and interstitial disease. Superimposed basilar opacities cannot be excluded. Electronically Signed by Jr Vega MD 02/25/2019 08:11 A
[2019-02-25] MEDS ORDERED: ATOR40TA75 PO (08:28)
[2019-02-25] MEDS ORDERED: NITR4TASL SL (08:31)
[2019-02-25] MEDS ORDERED: MOM 30ML SUSPENSION UDC PO PRN (09:45)
[2019-02-25] MEDS ORDERED: MAALOX 30 ML SUSP *UDC PO PRN (09:45)
[2019-02-25] MEDS: NS 1,000 ML IV SCH ×2 (11:26→21:20)
[2019-02-25] MEDS ORDERED: NS 500 ML IV PRN (13:45)
[2019-02-25 14:09] VITALS: BP 116/69
[2019-02-25] MEDS: ONDANSETRON 4MG/2ML VIAL (J2405) IV PRN ×2 (14:20→21:16)
[2019-02-25] MEDS: DOCUSATE SODIUM 100 MG CAP PO SCH ×2 (15:30→22:32)
[2019-02-25] MEDS: CitaloPRAM (CeleXA) 20 MG TAB PO SCH (15:39)
[2019-02-25] MEDS: DONEPEZIL 5 MG TAB PO SCH (15:39)
[2019-02-25] MEDS: ATORVASTATIN 20 MG TAB PO SCH (15:39)
[2019-02-25] MEDS: POTASSIUM CHLORIDE 10 MEQ SR TABLET PO SCH (15:39)
[2019-02-25 15:42] LABS: HEMATOCRIT 31.1 % (42.0-52.0); HEMOGLOBIN 10.2 g/dl (13.5-17.5)
[2019-02-25] MEDS: SYMBICORT 160/4.5MCG INHALER 6GM INH SCH ×2 (15:57→20:20)
[2019-02-25] MEDS ORDERED: GLUCAGON FOR INJ 1 MG VIAL (J1610) SC PRN (19:15)
[2019-02-25] MEDS ORDERED: DEXTROSE 50% 50 ML SYRINGE IV PRN (19:15)
[2019-02-25] MEDS ORDERED: GLUCOSE 4 GM CHEW TABLET PO PRN (19:15)
--- NOTE | 2019-02-25 19:22 | HPEPDOC ---
General Date of Admission 02/25/19 Date of Service: Feb 25, 2019 Primary Care Physician: Saul Mejia Other Providers Dr Aurora Mckeon Attending Physician: ALFONSO LARKIN DO Chief Complaint The patient is a 73-year-old male admitted with a reason for visit of Nose Bleed. Source: Patient, Family History of Present Illness 73 yo presented to ED with epistaxis. Epistaxis was controlled in the ED and he was going to be discharged from the ED when he had sudden episode of symptomatic orthostatic hypotension manifested by lightheaded, tachycardia. Patient states he has had 3 episodes of lightheaded/dizzy and near syncope (01/21,01/26 and 02/09); He had syncopal episode on 02/19 inwhich he felt lightheaded but before he could sit down, had passed out, face planted on floor and fractured his sternum and broke his nose. Patient states he is scheduled for nasal fracture repair with Dr Bhandari on 02/27/19. Patient stopped his plavix today in anticipation of surgery. He states Dr Simon told him not to be off plavix more than 2 days because of increased risk of stroke. Patient states he has a left vertebral art denise occlusion and has chronic intermittent lightheadedness associated with it. He states he has had a full syncope workup in the past. He initially did not want to stay in hospital but agreed after convinced by . He states cardiology told him to stop his lopressor because of hypotension and that Dr iSmon wants his blood pressure closer to systolic 120. In the ED patient had intermittent labile hypotension with orthostatics supine 123/68 - pulse 108 and sitting 80/48- pulse 112 (blood pressures performed by attending physician) with symptoms. Home Medications Scheduled Atorvastatin Calcium (Atorvastatin Calcium) 40 Mg Tablet, 40 MG PO DAILY, (Reported) Citalopram Hydrobromide (Citalopram HBr) 20 Mg Tab, 20 MG PO DAILY, (Reported) Clopidogrel Bisulfate (Clopidogrel) 75 Mg Tab, 75 MG PO QHS, (Reported) PT TO HOLD FOR SURGERY Donepezil HCl (Aricept) 10 Mg Tab, 5 MG PO DAILY, (Reported) Dulaglutide (Trulicity) 1.5 Mg/0.5 Ml Inj, 1.5 MG SC QWEEK, (Reported) TUESDAY Fluticasone/Vilanterol (Breo Ellipta 200-25 Mcg INH) 1 Inh Inh, 1 PUFF INH DAILY, (Reported) Potassium Chloride (Potassium Chloride) 10 Meq Capsule.er, 10 MEQ PO DAILY, (Reported) Ranitidine HCl (Zantac) 300 Mg Tab, 1 TAB PO QHS, (Reported) Umeclidinium [place] (Incruse Ellipta) 62.5 Mcg/Inh Inh, 1 PUFF INH DAILY, (Reported) Scheduled PRN Albuterol Sulf (Albuterol Sulfate) 2.5 Mg/3 Ml Vial.neb, 2.5 MG INH Q4H PRN for SHORTNESS OF BREATH, (Reported) Albuterol Sulfate (Ventolin Hfa) 108 Mcg/Act Aer, 2 PUFF INH QID PRN for SHORTNE SS OF BREATH, (Reported) Nitroglycerin (Nitrostat) 0.4 Mg Tab.subl, 0.4 MG SL NITRO PRN for CHEST PAIN, (Reported) Oxycodone HCl/Acetaminophen (Percocet 5-325 mg Tablet) 1 Each Tablet, 1 TAB PO Q4HP PRN for PAIN Allergies Coded Allergies: No Known Allergies (Unverified , 02/23/19) Past Medical History Medical History TYPE 2 DIABETES 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 WITH 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- 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 CURRENT USE OF INSULIN CORONARY ARTERY DISEASE GASTROESOPHAGEAL REFLUX HYPERCHOLESTEROLEMIA SLEEP APNEA ALLERGIC RHINITIS THROMBOCYTOPENIA FATTY LIVER MEMORY LOSS LUNG NODULE RIGHT BUNDLE BRANCH BLOCK (RBBB) C DIFF enterocolitis 07/2018 - resolved SURGICAL HISTORY TONSILLECTOMY AGE 20 RIGHT CARPAL TUNNEL RELEASE IN THE PAST ATTEMPTED STENT PLACEMENT, RCA 1995 RIGHT EYE CATARACT EXTRACTION WITH LENS IMPLANT 08/2011 COLONOSCOPY 10/2011 LEFT EYE CATARACT EXTRACION WITH LENS IMPLANT 09/2012 L3-S1 DECOMPRESSION WITH L4-5 IN SITU FUSION WITH LOCAL FUSION 10/2012 FAMILY HISTORY FATHER HAD SEVERAL IA'S, FIRST AT AGE 74. MOTHER HAD CVA, CHF AND CAD. SOCIAL HISTORY: former smoker (quit 1999), no EtOH use, Review of Systems Constitutional: Reports: Fatigue ENT: Reports: Sinus Congestion, Epistaxis Pulmonary: Reports: Cough Cardiovascular: Reports: Chest Pain, Lt Headedness Hematologic: Reports: Bleeding Excessively Other systems 10 systems reviewed and negative except as above or as per HPI Physical Examination General Exam: Positive: Alert, Cooperative, Mild Distress (with orthostatic hypotension/lightheaded when sitting) Eye Exam: Positive: PERRLA, Conjunctiva & lids normal, EOMI, Other Eye Symptoms (bruising to periorbital area bilaterally) ENT Exam: Positive: Mucous membr. moist/pink, Pharynx Normal, Other ENT (deviated septum, nasal turbinates occluded by dried clot) Neck Exam: Positive: Supple, +2 carotid pulse wo bruit Chest Exam: Positive: Clear to auscultation, Normal air movement, Rales, Diminished (pain with deep breathing (hx of sternum fracture)); Negative: Rhonchi, Wheezing Heart Exam: Positive: Tachycardic Telemetry: Positive: Tachycardia, Other Telemetry: (EKG reivewed with sinus tac h) Abdomen Exam: Positive: Normal bowel sounds, Soft (NT ND NABS) Extremity Exam: Positive: Normal pulses; Negative: Clubbing, Cyanosis, Edema Skin Exam: Positive: Nl turgor and temperature Neuro Exam: Positive: Normal Speech, Strength at 5/5 X4 ext, Normal Tone, Sensation Intact, Cranial Nerves 3-12 NL Psych Exam: Positive: Mental status NL, Mood NL, Memory Intact, Oriented x 3 Other physical findings CXR Impression: Chronic COPD and interstitial disease. Superimposed basilar opacities cannot be excluded. Vital Signs Vital Signs Date Time Temp Pulse Resp B/P (MAP) Pulse Ox O2 Delivery O2 Flow Rate FiO2 02/25/19 07:14 104 88 02/25/19 06:44 111/70 (84) 02/25/19 05:55 96.9 20 Room Air Laboratory Data Labs 24H Laboratory Tests 2 02/25/19 05:54: Immature Granulocyte % (Auto) 0.7, White Blood Count 11.9H, Red Blood Count 3.56L, Hemoglobin 12.1L, Hematocrit 37.0L, Mean Corpuscular Volume 103.9H, Mean Corpuscular Hemoglobin 34.0H, Mean Corpuscular Hemoglobin Concent 32.7, Red Cell Distribution Width 14.4, Platelet Count 74L, Neutrophils (%) (Auto) 64.9, Lymphocytes (%) (Auto) 14.5L, Monocytes (%) (Auto) 11.8H, Eosinophils (%) (Auto) 7.6H, Basophils (%) (Auto) 0.5, Neutrophils # (Auto) 7.7, Lymphocytes # (Auto) 1.7, Monocytes # (Auto) 1.4H, Eosinophils # (Auto) 0.9H, Basophils # (Auto) 0.1, Nucleated Red Blood Cells % (auto) 0.0, Immature Platelet Fraction 12.7H, Anion Gap 8, Glomerular Filtration Rate > 60.0, Calcium Level 7.9L, Aspartate Amino Transf (AST/SGOT) 61H, Alanine Aminotransferase (ALT/SGPT) 51, Alkaline Lizzie sphatase 135H, Total Bilirubin 1.3H, Direct Bilirubin 0.4H, WS-Opx-N-Type Natriuretic Peptide 124, Total Protein 6.6, Albumin 2.4L, Albumin/Globulin Ratio 0.57L CBC/BMP Laboratory Tests 02/25/19 05:54 Red Blood Count 3.56 L, Mean Corpuscular Volume 103.9 H, Mean Corpuscular Hemo globin 34.0 H, Mean Corpuscular Hemoglobin Concent 32.7, Red Cell Distribution Width 14.4, Neutrophils (%) (Auto) 64.9, Lymphocytes (%) (Auto) 14.5 L, Monocytes (%) (Auto) 11.8 H, Eosinophils (%) (Auto) 7.6 H, Basophils (%) (Auto) 0.5, Neutrophils # (Auto) 7.7, Lymphocytes # (Auto) 1.7, Monocytes # (Auto) 1.4 H, Eosinophils # (Auto) 0.9 H, Basophils # (Auto) 0.1 Assessment/Plan 1) Recurrent falls prior to admission - PT/OT consult 2) Orthostatic hypotension - symptomatic with syncope and vertebrobasilar insufficiency off lopressor,start gentle IVF - avoid CHF; daily orthostatic BP. NOT A CANDIDATE for midodrine as pt supine blood pressure may raise too high 3) Nasal fracture with epistaxis - stable currently. plan to discharge 02/26 in anticipation of surgery 02/27 if remains hemodyanmically stable with no further orthostatic changes in BP. serial H/H if starts bleeding. Consider ENT consult if starts to bleed. hold plavix/asa in anticipation of surgery 4) Sternum fracture from prior traumatic fall/syncope - symptomatic care 5) COPD - without exacerbation - nebs, IS 6) Diabetes - on alf insulin. check ac/hs and cover with SSI. he is on once a week trulicity and if BS increase, consider levemir 7) thrombocytopenia - hold plavix, no lovenox or heparin. hold ASA. Continue all other home medications as prior to admission - except hold plavix CODE STATUS: FULL DVT Prophylaxis: no chemical prophylaxis due to thrombocytopenia and bleeding; use SCD ADDENDUM AT 1330 - called to floor for nasal bleeding. Patient getting out of ED litter transfering to flood bed when had sudden nasal bleeding (trickling bright red blood) followed by vomiting of approx 60cc of old clots. ENT consulted. Plan / VTE VTE Prophylaxis Ordered?: Yes ALFONSO LARKIN DO Feb 25, 2019 09:52
[2019-02-25] MEDS: HumaLOG INSULIN (NovoLOG) PER UNIT SC SCH (21:00)
[2019-02-25 22:00] VITALS: BP 103/62
[2019-02-25] MEDS: FAMOTIDINE 20 MG TAB PO SCH (22:32)
[2019-02-26 06:00] VITALS: BP_SYST 102; BP_SYST 78; BP_DIAS 52; BP_DIAS 62
[2019-02-26] MEDS: NS 1,000 ML IV SCH ×3 (07:04→22:19)
[2019-02-26 07:07] LABS: HEMATOCRIT 25.4 % (42.0-52.0); HEMOGLOBIN 8.4 g/dl (13.5-17.5); MEAN CORPUSCULAR HEMOGLOBIN 33.6 pg (27.0-33.0); MEAN CORPUSCULAR HGB CONC 33.1 g/dl (32.0-36.5); MEAN CORPUSCULAR VOLUME 101.6 fl (80.0-96.0); WHITE BLOOD COUNT 10.9 10^3/uL (4.0-10.0)
[2019-02-26 07:13] LABS: PLATELET COUNT, AUTOMATED 76 10^3/uL (150-450)
[2019-02-26 07:14] LABS: INR 1.18; PROTHROMBIN TIME 14.7 SECONDS (11.8-14.0)
[2019-02-26 07:31] LABS: BLOOD UREA NITROGEN 35 MG/DL (7-18); CALCIUM LEVEL 7.5 MG/DL (8.8-10.2); CARBON DIOXIDE LEVEL 26 MEQ/L (21-32); CHLORIDE LEVEL 110 MEQ/L (98-107); CREATININE FOR GFR 0.82 MG/DL (0.70-1.30); GLOMERULAR FILTRATION RATE > 60.0 (>42); GLUCOSE, FASTING 122 MG/DL (70-100); POTASSIUM SERUM 4.3 MEQ/L (3.5-5.1); SODIUM LEVEL 140 MEQ/L (136-145)
[2019-02-26] MEDS: POTASSIUM CHLORIDE 10 MEQ SR TABLET PO SCH (07:48)
[2019-02-26] MEDS: DONEPEZIL 5 MG TAB PO SCH (07:48)
[2019-02-26] MEDS: HumaLOG INSULIN (NovoLOG) PER UNIT SC SCH ×4 (07:49→20:57)
[2019-02-26] MEDS: ATORVASTATIN 20 MG TAB PO SCH (07:49)
[2019-02-26] MEDS: CitaloPRAM (CeleXA) 20 MG TAB PO SCH (07:50)
[2019-02-26] MEDS: DOCUSATE SODIUM 100 MG CAP PO SCH ×2 (07:50→20:00)
[2019-02-26] MEDS ORDERED: PREVNAR 13 VACCINE SYRINGE (CPT CODE:90670) IM ONE (09:00)
[2019-02-26] MEDS ORDERED: ENOXAPARIN 40 MG/0.4 ML SYRINGE (J1650) SC SCH (09:00)
[2019-02-26] MEDS: SYMBICORT 160/4.5MCG INHALER 6GM INH SCH ×2 (09:50→20:10)
[2019-02-26] MEDS ORDERED: NS 1,000 ML IV SCH (10:52)
[2019-02-26] MEDS ORDERED: diphenhydrAMINE 25 MG CAP PO ONE (11:00)
[2019-02-26] MEDS ORDERED: ACETAMINOPHEN TAB 650MG DOSE (2X325MG) PO ONE (11:00)
[2019-02-26 14:00] VITALS: BP 102/61
--- NOTE | 2019-02-26 15:54 | IPNPDOC ---
Text Note Date of Service The patient was seen on 02/26/19. NOTE S: Family concerned because patient with intermittent slurred speech, mental delay and confusion yesterday. Has not had any further epistaxis since yesterday afternoon. Still with significant orthostatic hypotension. He denies chest pain, +SOB and pain along sternum is positional. no orthopnea. + nausea (patient states swallowed lots of nasal bleeding/clots) and some melena from nasal bleeding. O: Vitals as below Vital Signs Label Value Date Time Pulse 108 02/26/19 0600 Pulse 114 02/26/19 0600 Pulse 101 02/26/19 0600 Blood Pressure Assessment 102/62 (75) 02/26/19 0600 Location Left Arm Source Automatic Cuff (NIBP) Position Supine Blood Pressure Assessment 78/52 (61) 02/26/19 0600 Location Left Arm Source Automatic Cuff (NIBP) Position Sitting Pulse 119 02/25/19 1409 Blood Pressure Assessment 116/69 (85) 02/25/19 1409 Respiratory Rate 22 bpm 02/25/19 1409 General: pale appearing, AAOx3, speech clear, NAD; wearing oxygen (NC) and in supine position HEENT: conjunctival palor; nasal septal deviation with dried blood in nares Heart - tachy 110, no murmur, regular; no palpable sternum crepitus LCTA no W/R/R , no CVA tenderness; Ext: no edema Skin: slow cap refill, pale appearing A/P: 1) Recurrent falls prior to admission - PT/OT consult 2) Orthostatic hypotension - symptomatic with syncope and vertebrobasilar insufficiency off lopressor,start gentle IVF - avoid CHF; daily orthostatic BP. NOT A CANDIDATE for midodrine as pt supine blood pressure may raise too high continue IVF and transfuse 1 unit pRBC or until hgb above 10 given his underl humera cardiac and nuerological history 3) Nasal fracture with epistaxis - repeat bleeding episode yesterday and H/H drop to 8.5; transfuse 1 unit; consult Dr Bhandari (case discussed on 02/25/19). surgery 02/27 for nasal fracture/bleeding scheduled - hold plavix/asa in anticipation of surgery; NPO after midnight 4) Class III hemorrhagic shock due to epistaxis and manifested by hypotension (SBP less than 90), tachycardia (pulse 100-120) and intermittent confusion - improving. continue IVF. tranfuse pRBC. epistaxis is stopped for now and plan on surgery tomorrow. PRN fluid bolus for SBP under 90 5) Sternum fracture from prior traumatic fall/syncope - symptomatic care 5) COPD - without exacerbation - nebs, IS (will need pulmonary toilet, and increased nebs/IS post operatively to prevent pneumonia) 6) Diabetes - on group home insulin. check ac/hs and cover with SSI. he is on once a week trulicity and if BS increase, consider levemir; 7) thrombocytopenia - Platelets 76 (no transfusion for platelets unless less than 50 for surgery) hold plavix, no lovenox or heparin. hold ASA. Continue all other home medications as prior to admission - except hold plavix Disposition: post op, will need to consult PT/OT and possible ARU. Anticipate patient hospital stay 3-5 days. CODE STATUS: FULL DVT Prophylaxis: no chemical prophylaxis due to thrombocytopenia and bleeding; use SCD VS,Fishbone, I+O VS, Fishbone, I+O Laboratory Tests 02/25/19 15:18 02/26/19 06:40 Red Blood Count 2.50 L, Mean Corpuscular Volume 101.6 H, Mean Corpuscular Hemogl obin 33.6 H, Mean Corpuscular Hemoglobin Concent 33.1, Red Cell Distribution Width 14.5, Calcium Level 7.5 L Vital Signs Date Time Temp Pulse Resp B/P (MAP) Pulse Ox O2 Delivery O2 Flow Rate FiO2 02/26/19 09:00 2.0 02/26/19 06:00 97.6 101 18 95 02/26/19 06:00 102/62 (75) 78/52 (61) 02/25/19 13:00 Room Air I&O- Last 24 Hours up to 6 AM 02/26/19 06:00 Intake Total 3750 ml Output Total 300 ml Balance 3450 ml ALFONSO LARKIN DO Feb 26, 2019 11:00
[2019-02-26 17:16] LABS: HEMATOCRIT 26.4 % (42.0-52.0); HEMOGLOBIN 8.8 g/dl (13.5-17.5)
[2019-02-26] MEDS ORDERED: POTASSIUM CHLORIDE 10 MEQ SR TABLET PO ONE (17:30)
[2019-02-26] MEDS ORDERED: FUROSEMIDE 40 MG/4 ML VIAL (J1940) IV ONE (17:30)
[2019-02-26] MEDS: FAMOTIDINE 20 MG TAB PO SCH (20:01)
[2019-02-26 20:11] VITALS: O2SAT 93
[2019-02-26 22:00] VITALS: BP 98/62
[2019-02-26] MEDS ORDERED: NS 1,000 ML IV ONE (22:00)
--- NOTE | 2019-02-26 22:56 | IPNPDOC ---
Subjective Date Seen The patient was seen on 02/26/19. Subjective Chief Complaint/HPI Low blood pressure General: Reports: Fatigue Constitutional: Reports: Fatigue Eyes: Denies: Pain, Vision change, Conjunctivae inflammation, Eyelid inflammation, Redness, Other ENT: Reports: Sinus Congestion, Epistaxis; Denies: Head Aches, Ear Pain, Dysphagia Skin: Denies: Rash, Lesions, Breakdown Pulmonary: Reports: Cough Cardiovascular: Reports: Lt Headedness Gastrointestinal: Denies: Nausea, Vomiting, Abdominal Pain, Diarrhea, Constipation Genitourinary: Denies: Dysuria, Frequency, Incontinence, Retention Hematologic: Reports: Bleeding Excessively Endocrine: Denies: Polydipsia, Polyphagia, Polyuria, Heat Intolerance, Cold Intolerance, Other Endocrine Sx Musculoskeletal: Denies: Neck Pain, Back Pain, Joint Pain, Muscle Pain, Spasms Neurological: Denies: Weakness, Numbness, Change in speech, Confusion Psych: Reports: Mood Normal Objective Physical Examination General Exam: Positive: Alert, Cooperative, No Acute Distress Eye Exam: Positive: PERRLA, Conjunctiva & lids normal, EOMI, Other Eye Symptoms (bruising to periorbital area bilaterally) ENT Exam: Positive: Mucous membr. moist/pink, Pharynx Normal, Other ENT (deviated septum, nasal turbinates occluded by dried clot) Neck Exam: Positive: Supple, +2 carotid pulse wo bruit Chest Exam: Positive: Normal air movement, Rales, Diminished (pain with deep breathing (hx of sternum fracture)); Negative: Rhonchi, Wheezing Heart Exam: Positive: Tachycardic Telemetry: Positive: Tachycardia, Other Telemetry: (EKG reivewed with sinus tach) Abdomen Exam: Positive: Normal bowel sounds, Soft (NT ND NABS) Extremity Exam: Positive: Normal pulses; Negative: Clubbing, Cyanosis, Edema Skin Exam: Positive: Nl turgor and temperature Neuro Exam: Positive: Normal Speech, Strength at 5/5 X4 ext, Normal Tone, Sensation Intact, Cranial Nerves 3-12 NL Psych Exam: Positive: Mental status NL, Mood NL, Memory Intact, Oriented x 3 Assessment /Plan Assessment 73 year old elderly male has orthostatic hypotension with manual systolic blood pressure 88 after he received 2 units of 3 unit of PRBC's ordered blood transfusion due to his Hematocrit dropping from 15 to 8. His drop in hematocrit is due to his epistasis from his fractured nose caused by his fall when he had an episode of syncope and collapse last month at his home. During that episode of skipping collapse. He also fractured his sternum. This patient at bedside. He is alert and oriented 3, PERRLA 2, lungs are diminished bilateral bases, lobes inspiratory, abdomen soft, nondistended, nontender, with active bowel sounds all quadrants, bluish black bruising right. Orbital and nasal bone, no pedal or lower leg edema, +2 pedal pulses bilateral. Nurses at bedside setting up third unit of PRBC for transfusion. Vital signs are stable. Patient is afebrile. Orthostatic Hypotension-Acute on Chronic -Start 2nd Peripheral IV -Bolus 1L of Normal Saline -Start Fluid Resuscitation IVF Normal Saline at 125 cc/hr after 1L fluid bolus -Monitor blood pressure q 30 min x 4; then q hour x 4 then q 4 hours -Repeat CBC one hour post 3rd PRBC unit -Monitor for recurrent epistasis. -[id number] IV push hold until patient's systolic blood pressure is above 110. Will give after third unit of PRBC. Discussed treatment plan with patient, answered patient's questions regarding treatment plan to his satisfaction. Patient agrees with treatment plan. I will continue to assess patient throughout the evening. Regarding his blood pressure and fluid resuscitation. Attending abreast of patients' health status Patient received an additional 1L bolus of Normal Saline and his blood did improve to 110 systolic manual and was given 5 mg IV which is half of ordered dose so that his blood pressure does not bottom out. Plan/VTE VTE Prophylaxis Ordered?: No (Patient already on VTE regimen) VTE Exclusion Pharmacological: N/A:VTE Prophy Ordered (Patient is already receiving Lovenox 40 mg SC daily) Plan IVF: Initiate, Change (Bolus 1000 ML of Normal Saline) Diet: Continue Current Activity: Continue Current Diagnostics: Check Labs, Repeat Labs in AM VS, I&O, 24H, Fishbone Vital Signs/I&O Vital Signs Date Time Temp Pulse Resp B/P (MAP) Pulse Ox O2 Delivery O2 Flow Rate FiO2 02/26/19 20:11 93 Nasal Cannula 2.0 02/26/19 14:00 98.3 103 19 102/61 (75) I&O- Last 24 Hours up to 6 AM 02/26/19 06:00 Intake Total 3750 ml Output Total 300 ml Balance 3450 ml Laboratory Data 24H LABS Laboratory Tests 2 02/26/19 06:40: Nucleated Red Blood Cells % (auto) 0.0, Immature Platelet Fraction 7.0, Prothrombin Time 14.7H, Prothromb Time International Ratio 1.18, Anion Gap 4L, Glomerular Filtration Rate > 60.0, Blood Urea Nitrogen 35#H, Creatinine 0.82, Sodium Level 140, Potassium Level 4.3, Chloride Level 110H, Carbon Dioxide Level 26, Calcium Level 7.5L 02/26/19 12:47: Bedside Glucose (Misc Panel) 198H 02/26/19 16:27: Bedside Glucose (Misc Panel) 138H 02/26/19 20:48: Bedside Glucose (Misc Panel) 111H CBC/BMP Laboratory Tests 02/26/19 06:40 Red Blood Count 2.50 L, Mean Corpuscular Volume 101.6 H, Mean Corpuscular Hemoglobin 33.6 H, Mean Corpuscular Hemoglobin Concent 33.1, Red Cell Distribution Width 14.5, Calcium Level 7.5 L 02/26/19 16:44 KRISSY KANG Feb 26, 2019 22:54
[2019-02-27] VITALS (14 sets, daily range): BP systolic 104–135; BP diastolic 52–71; O2SAT 94
[2019-02-27] MEDS: NS 1,000 ML IV SCH ×4 (00:15→21:53)
[2019-02-27 01:49] LABS: HEMATOCRIT 31.1 % (42.0-52.0); HEMOGLOBIN 10.4 g/dl (13.5-17.5)
[2019-02-27] MEDS ORDERED: FUROSEMIDE 20 MG/2 ML VIAL (J1940) IV ONE (03:00)
[2019-02-27 07:05] LABS: HEMATOCRIT 33.9 % (42.0-52.0); HEMOGLOBIN 11.3 g/dl (13.5-17.5); MEAN CORPUSCULAR HGB CONC 33.3 g/dl (32.0-36.5); MEAN CORPUSCULAR VOLUME 99.1 fl (80.0-96.0); RED BLOOD COUNT 3.42 10^6/uL (4.30-6.10); WHITE BLOOD COUNT 8.9 10^3/uL (4.0-10.0)
[2019-02-27] MEDS: SYMBICORT 160/4.5MCG INHALER 6GM INH SCH ×2 (07:21→19:43)
[2019-02-27 07:23] LABS: INR 1.17; PROTHROMBIN TIME 14.6 SECONDS (11.8-14.0)
[2019-02-27] MEDS: HumaLOG INSULIN (NovoLOG) PER UNIT SC SCH ×4 (07:30→20:29)
[2019-02-27 07:34] LABS: ALT/SGPT 33 U/L (12-78); BILIRUBIN,TOTAL 1.8 MG/DL (0.2-1.0); BLOOD UREA NITROGEN 19 MG/DL (7-18); CALCIUM LEVEL 7.3 MG/DL (8.8-10.2); CARBON DIOXIDE LEVEL 25 MEQ/L (21-32); CHLORIDE LEVEL 112 MEQ/L (98-107); CREATININE FOR GFR 0.74 MG/DL (0.70-1.30); GLOMERULAR FILTRATION RATE > 60.0 (>42); GLUCOSE, FASTING 99 MG/DL (70-100); POTASSIUM SERUM 3.6 MEQ/L (3.5-5.1); SODIUM LEVEL 142 MEQ/L (136-145); TOTAL PROTEIN 5.6 GM/DL (6.4-8.2)
[2019-02-27 07:42] LABS: PLATELET COUNT, AUTOMATED 51 10^3/uL (150-450)
--- NOTE | 2019-02-27 08:47 | IPN ---
DATE OF SERVICE: 02/27/2019 The patient still complains of dizziness when he gets up. He remains orthostatic and on intravenous (IV) fluid. No chest pain, pressure, tightness, or palpitations. No recurrent episodes of epistaxis. The patient has no rectal bleeding, melena, or black tarry stools. The patient did have an episode of some slight shortness of breath, given Lasix 5 mg IV at 3 a.m. this morning with output of 275. Current weight is 85.7. Vital signs: Temperature 97.5, pulse 84, respiratory rate 16, blood pressure 135/68, 92% 2 liters nasal cannula. Generally, patient has Ortez's signs with ecchymosis around the eyes. He has some septal deviation, dry blood in the nares bilaterally. Heart: S1, S2. Sinus tachycardia. Lungs: Clear to auscultation. No wheezing, rales, or rhonchi. Abdomen: Soft, nontender, nondistended. Positive bowel sounds. No rebound or guarding. Extremities: No cyanosis, clubbing. No pitting edema. LABORATORY DATA: White count 8.9, hemoglobin 11, hematocrit 33, platelet count 51, previous platelet count of 76. Sodium 142, potassium 3.6, chloride 112, bicarbonate 25, BUN 19, creatinine 0.74, glucose 99. Total bilirubin 1.8, AST 38, ALT 33, alkaline phosphatase 101, total protein 5.6, albumin of 2. INR 1.17, PT 14.6. CURRENT MEDICATIONS: - hyperglycemic protocol - Pepcid - normal saline bolus - Tylenol 650 as needed - Milk of Magnesia - Mylanta - Proventil - Percocet - atorvastatin - Colace - Celexa - Aricept - potassium - Symbicort ASSESSMENT AND PLAN: This is a 73-year-old with diabetes, CAD, reflux, hypercholesterolemia, sleep apnea, allergic rhinitis, chronic thrombocytopenia, fatty liver, memory loss, lung nodules, chronic right bundle branch block, Clostridium (C) difficile July 2018, presented with epistaxis after he had fallen due to orthostatic hypotension due to left vertebral artery occlusion. The patient has chronic intermittent lightheadedness and has been on chronic Plavix due to risk of stroke. The patient had a fall at home with a fracture sternum and nasal deviation and fracture. CURRENT ISSUES: 1. Acute blood anemia secondary to epistaxis, resolved after blood transfusion. The patient had 3 units of red blood cell (RBC) transfused with hemoglobin increasing from 8.4 to 11.3. Platelet count is still low but no active signs of bleeding. Plavix has been held. 2. Left vertebral artery occlusion. At risk for stroke. Off Plavix due to acute blood loss anemia from fall and epistaxis. 3. Orthostatic hypotension due to vertebral artery occlusion. Currently on IV fluid boluses. Not a candidate for midodrine due to vertebral artery occlusion and risk of increased uncontrolled hypertension. 4. Hemorrhagic shock due to epistaxis. 5. Sternal fracture from prior traumatic fall and syncope symptomatic care. Physical therapy and acute rehab. 6. Chronic obstructive pulmonary disease (COPD) without exacerbation. Currently on pulmonary toilet, nebulizers, and incentive spirometry. 7. Thrombocytopenia. No transfusions unless platelet count is less than 50 for surgery. Plavix has been held due to recent active bleeding and blood loss anemia. No Lovenox or heparin, and hold the aspirin. 8. Type 2 diabetes. On hypoglycemic protocol, long-term insulin, before food, nightly fingersticks, on Trulicity once a week. May consider Levemir if needed. DISPOSITION: Await further recommendations from Dr. Bhandari, ENT surgeon, currently physical therapy (PT), occupational therapy (OT) consulted and possible acute rehabilitation unit (ARU).
[2019-02-27] MEDS: CitaloPRAM (CeleXA) 20 MG TAB PO SCH (08:50)
[2019-02-27] MEDS: ATORVASTATIN 20 MG TAB PO SCH (08:50)
[2019-02-27] MEDS: POTASSIUM CHLORIDE 10 MEQ SR TABLET PO SCH (08:50)
[2019-02-27] MEDS: DOCUSATE SODIUM 100 MG CAP PO SCH ×2 (08:50→20:28)
[2019-02-27] MEDS: DONEPEZIL 5 MG TAB PO SCH (08:51)
[2019-02-27] MEDS ORDERED: ONDANSETRON 4MG/2ML VIAL (J2405) IV PRN (13:45)
[2019-02-27] MEDS ORDERED: LR 1,000 ML IV SCH (13:45)
[2019-02-27] MEDS ORDERED: oxyCODONE 5MG TAB PO PRN (13:45)
[2019-02-27] MEDS: fentaNYL 100 MCG/2 ML INJECTION (J3010) IV PRN ×2 (13:51→13:56)
[2019-02-27] MEDS: FAMOTIDINE 20 MG TAB PO SCH (20:28)
[2019-02-27] MEDS: ACETAMINOPHEN TAB 650MG DOSE (2X325MG) PO PRN (21:52)
[2019-02-28] VITALS (7 sets, daily range): BP systolic 96–137; BP diastolic 57–77; O2SAT 93
[2019-02-28] MEDS: NS 1,000 ML IV SCH ×2 (04:28→11:20)
[2019-02-28 06:01] LABS: HEMOGLOBIN 11.2 g/dl (13.5-17.5); MEAN CORPUSCULAR HEMOGLOBIN 33.3 pg (27.0-33.0); MEAN CORPUSCULAR HGB CONC 32.9 g/dl (32.0-36.5); MEAN CORPUSCULAR VOLUME 101.2 fl (80.0-96.0); RED BLOOD COUNT 3.36 10^6/uL (4.30-6.10); WHITE BLOOD COUNT 7.7 10^3/uL (4.0-10.0)
[2019-02-28 06:08] LABS: PLATELET COUNT, AUTOMATED 48 10^3/uL (150-450)
[2019-02-28 06:18] LABS: BLOOD UREA NITROGEN 14 MG/DL (7-18); CALCIUM LEVEL 7.6 MG/DL (8.8-10.2); CARBON DIOXIDE LEVEL 27 MEQ/L (21-32); CHLORIDE LEVEL 110 MEQ/L (98-107); CREATININE FOR GFR 0.69 MG/DL (0.70-1.30); GLOMERULAR FILTRATION RATE > 60.0 (>42); GLUCOSE, FASTING 105 MG/DL (70-100); POTASSIUM SERUM 3.7 MEQ/L (3.5-5.1); SODIUM LEVEL 141 MEQ/L (136-145)
[2019-02-28] MEDS ORDERED: ACETAMINOPH W/CODEINE #3 TAB UD PO PRN (06:30)
[2019-02-28] MEDS: SYMBICORT 160/4.5MCG INHALER 6GM INH SCH (07:25)
[2019-02-28] MEDS: HumaLOG INSULIN (NovoLOG) PER UNIT SC SCH ×4 (07:30→20:46)
[2019-02-28] MEDS: DOCUSATE SODIUM 100 MG CAP PO SCH ×2 (08:09→20:49)
[2019-02-28] MEDS: ATORVASTATIN 20 MG TAB PO SCH (08:10)
[2019-02-28] MEDS: CitaloPRAM (CeleXA) 20 MG TAB PO SCH (08:10)
[2019-02-28] MEDS: POTASSIUM CHLORIDE 10 MEQ SR TABLET PO SCH (08:10)
[2019-02-28] MEDS: DONEPEZIL 5 MG TAB PO SCH (08:11)
[2019-02-28] MEDS: ACETAMINOPHEN TAB 650MG DOSE (2X325MG) PO PRN ×2 (08:11→19:52)
[2019-02-28] MEDS: INCRUSE ELLIPTA INH SCH (11:23)
[2019-02-28] MEDS: VILANTEROL INH SCH (11:23)
[2019-02-28] MEDS: FLUTICASONE FUROATE INH SCH (11:23)
--- NOTE | 2019-02-28 15:06 | RO ---
DATE OF PROCEDURE: 02/27/2019 PREOPERATIVE DIAGNOSES: Nasal deformity. Nasal septal deviation. Epistaxis. POSTOPERATIVE DIAGNOSES: Nasal deformity. Nasal septal deviation. Epistaxis. OPERATIVE PROCEDURE: Nasal cautery. Septoplasty. Nasal infracture. SURGEON: Leighton Bhandari MD ENVIRONMENTAL STUDIES PROFESSOR: ANESTHESIA: FINDINGS: There were some vessels on the septum on the left side which were bleeding, which were cauterized. The septum was markedly deviated towards the right side as a result of the fracture. DESCRIPTION OF PROCEDURE: I used pledgets of adrenaline 1:1000 and infiltrated with lidocaine with epinephrine. I made an incision anteriorly on the right side and elevated the mucosa off of the cartilage. I removed a portion of the cartilage and the ethmoid plate, which were deviated towards the right side. Once this was done, the septum was straight. I closed that incision with #4-0 chromic. I then re-fractured the nose and positioned the nose in the midline. Patient tolerated the procedure well. I did cauterize the left side of the nose. I put some NasoPore in the nose on both sides and then applied an Aquaplast cast. Patient transferred to the recovery room in excellent condition. ESTIMATED BLOOD LOSS: 5 mL
--- NOTE | 2019-02-28 17:22 | IPNPDOC ---
Date Seen The patient was seen on 02/28/19. Progress Note SUBJECTIVE: pt still c/o orthostasis lightheadedness and some dizziness when he sits and stands from supine position in his bed. he denies any recurrent epistaxis, hematemesis, or hemoptysis. Per ENT, Dr. Bhandari, ok to resume pt's plavix today. no sob, chest pain, pressure, tightness. worried about low blood pressure,and risk of falling again at home. Despite recent IVfluids, pt remains with orthostatic. c/o 6/10 pain in sternum from recent fall, denies diaphoresis, or feeling of impending doom. OBJECTIVE: Vital signs: Temperature 98.1 pulse92, respiratory rate 18 , blood [id number] 1/74 94, % 4 liters nasal cannula. Generally, ecchymosis around the eyes. nasal packing and bandages. Heart: S1, S2. Sinus tachycardia. Lungs: Clear to auscultation. No wheezing, rales, or rhonchi. Abdomen: Soft, nontender, nondistended. Positive bowel sounds. No rebound or guarding. Extremities: No cyanosis, clubbing. No pitting edema. LABORATORY DATA,IMAGING STUDIES, MICROBIOLOGY: REVIEWED, PLS SEE BELOW CURRENT MEDICATIONS: plavix,hypoglycemic protocol,Pepcid, normal saline bolus, Tylenol 650 as needed, Milk of Magnesia, Mylanta, Proventil, Percocet, atorvastatin,Colace, Celexa, Aricept,potassium, Symbicort ASSESSMENT AND PLAN: This is a 73-year-old with diabetes, CAD, reflux, hypercholesterolemia, sleep apnea, allergic rhinitis, chronic thrombocytopenia, fatty liver, memory loss, lung nodules, chronic right bundle branch block, Clostridium (C) difficile July 2018, presented with epistaxis after he had fallen due to orthostatic hypotension due to left vertebral artery occlusion. The patient has chronic intermittent lightheadedness and has been on chronic Plavix due to risk of stroke. The patient had a fall at home with a fracture sternum and nasal deviation and fracture. CURRENT ISSUES: Acute blood anemia secondary to epistaxis, resolved after blood transfusion. The patient had 3 units of red blood cell (RBC) transfused with hemoglobin increasing from 8.4 to 11.3. Platelet count is still low but no active signs of bleeding. Plavix was held on admission initially, but resumed 02/28/[address] Bhandari. 2. Left vertebral artery occlusion. At risk for stroke. Off Plavix from admission due to acute blood loss anemia from fall and epistaxis.resumed plavix 02/28/[address] Bhandari. continued on Lipitor 3. Orthostatic hypotension due to vertebral artery occlusion. s/p ivfluid trials and encouraged to increase po fluid intake. Echo ordered per Dr. Simon, Neurology recommendations prior to trial of midodrine or florinef. Pt sees Dr. Monteiro as outpt and will need to discuss midodrine or florinef with him if he agrees before administering. Outpt fu w Dr. Simon for further testing. DDx: vertigo due to recent fall. OT consulted 4. Hemorrhagic shock due to epistaxis,resolved. 5. Sternal fracture from prior traumatic fall and syncope symptomatic care. Physical therapy and acute rehab. 6. Chronic obstructive pulmonary disease (COPD) without exacerbation. Currently on pulmonary toilet, nebulizers, and incentive spirometry. 7. Thrombocytopenia. No transfusions unless platelet count is less than 50 for surgery. Plavix has been held due to recent active bleeding and blood loss anemia. No Lovenox or heparin, and hold the aspirin. 8. Type 2 diabetes. On hypoglycemic protocol, long-term insulin, before food, nightly fingersticks, on Trulicity once a week. May consider Levemir if needed. DISPOSITION: physical therapy (PT), occupational therapy (OT) consulted and possible acute rehabilitation unit (ARU). VS, I&O, 24H, [facility] Vital Signs/I&O Vital Signs Date Time Temp Pulse Resp B/P (MAP) Pulse Ox O2 Delivery O2 Flow Rate FiO2 02/28/19 14:00 98.1 92 18 121/74 (90) 94 4.0 02/28/19 11:21 Nasal Cannula I&O- Last 24 Hours up to 6 AM 02/28/19 06:00 Intake Total 4356 ml Output Total 250 ml Balance 4106 ml Laboratory Data 24H LABS Laboratory Tests 2 02/27/19 20:19: Bedside Glucose (Misc Panel) 164H 02/28/19 05:39: Nucleated Red Blood Cells % (auto) 0.0, Immature Platelet Fraction 8.2, Anion Gap 4L, Glomerular Filtration Rate > 60.0, Blood Urea Nitrogen 14, Creatinine 0.69L, Sodium Level 141, Potassium Level 3.7, Chloride Level 110H, Carbon Dioxide Level 27, Calcium Level 7.6L 02/28/19 11:17: Bedside Glucose (Misc Panel) 125H 02/28/19 16:35: Bedside Glucose (Misc Panel) 122H CBC/BMP Laboratory Tests 02/28/19 05:39 Red Blood Count 3.36 L, Mean Corpuscular Volume 101.2 H, Mean Corpuscular Hemoglobin 33.3 H, Mean Corpuscular Hemoglobin Concent 32.9, Red Cell Distribution Width 16.2 H, Calcium Level 7.6 L CATRACHITA DANIELS MD Feb 28, 2019 17:14
[2019-02-28] MEDS: FAMOTIDINE 20 MG TAB PO SCH (20:49)
[2019-02-28] MEDS: CLOPIDOGREL 75 MG TAB PO SCH (20:49)
[2019-03-01] VITALS (9 sets, daily range): BP systolic 102–131; BP diastolic 63–82; O2SAT 93–95
[2019-03-01] MEDS: ACETAMINOPHEN TAB 650MG DOSE (2X325MG) PO PRN ×2 (06:17→15:14)
[2019-03-01 06:25] LABS: HEMATOCRIT 31.9 % (42.0-52.0); HEMOGLOBIN 10.5 g/dl (13.5-17.5); MEAN CORPUSCULAR HEMOGLOBIN 32.3 pg (27.0-33.0); MEAN CORPUSCULAR HGB CONC 32.9 g/dl (32.0-36.5); MEAN CORPUSCULAR VOLUME 98.2 fl (80.0-96.0); RED BLOOD COUNT 3.25 10^6/uL (4.30-6.10); WHITE BLOOD COUNT 8.1 10^3/uL (4.0-10.0)
[2019-03-01 06:29] LABS: PLATELET COUNT, AUTOMATED 54 10^3/uL (150-450)
[2019-03-01 06:52] LABS: BLOOD UREA NITROGEN 10 MG/DL (7-18); CALCIUM LEVEL 7.6 MG/DL (8.8-10.2); CARBON DIOXIDE LEVEL 30 MEQ/L (21-32); CHLORIDE LEVEL 109 MEQ/L (98-107); CREATININE FOR GFR 0.74 MG/DL (0.70-1.30); GLOMERULAR FILTRATION RATE > 60.0 (>42); GLUCOSE, FASTING 123 MG/DL (70-100); POTASSIUM SERUM 3.7 MEQ/L (3.5-5.1); SODIUM LEVEL 140 MEQ/L (136-145)
[2019-03-01] MEDS: HumaLOG INSULIN (NovoLOG) PER UNIT SC SCH ×4 (07:30→20:20)
[2019-03-01] MEDS: FLUTICASONE FUROATE INH SCH (07:36)
[2019-03-01] MEDS: VILANTEROL INH SCH (07:36)
[2019-03-01] MEDS: INCRUSE ELLIPTA INH SCH (07:37)
[2019-03-01] MEDS: ATORVASTATIN 20 MG TAB PO SCH (08:21)
[2019-03-01] MEDS: DOCUSATE SODIUM 100 MG CAP PO SCH ×2 (08:21→20:20)
[2019-03-01] MEDS: CitaloPRAM (CeleXA) 20 MG TAB PO SCH (08:21)
[2019-03-01] MEDS: POTASSIUM CHLORIDE 10 MEQ SR TABLET PO SCH (08:22)
[2019-03-01] MEDS: DONEPEZIL 5 MG TAB PO SCH (08:22)
--- NOTE | 2019-03-01 15:02 | IPNPDOC ---
Text Note Date of Service The patient was seen on 03/01/19. NOTE SUBJECTIVE: This is a 73-year-old male admitted with nasal facial injury and epistaxis after sustaining a fall. Fall was due to orthostatic hypotension associated with vertebral artery occlusion. He has undergone cautery and nasoplasty. He states he has been ambulatory with a walker and is doing well. Nursing staff reports the patient is still remarkably orthostatic. Patient does not appear to have yet had his echocardiogram. OBJECTIVE: HENT: Neck is supple with no adenopathy or thyromegaly. He has resolving bilateral periorbital ecchymoses. He also has stabilizing dressing to his nose. Cardiovascular: Regular rate and rhythm with a normal S1 and S2. I do not appreciate a murmur. Respiratory: Clear to auscultation. No rhonchi or rales, or cough. Abdomen: Soft, nontender, nondistended, positive bowel tones. Extremities: No peripheral edema or lesions, pedal pulses are palpable. Neuro: No focal neuromotor or sensory deficit ASSESSMENT/PLAN: 1. Fall injury. Patient apparently had nasal fracture and epistaxis. He has undergone transfusion with packed red blood cells due to significant blood loss. He has had subsequent nasal cautery and nasoplasty. He does not require further repair. Appreciate assistance from the ENT service. 2. Orthostatic hypotension with apparent syncopal event Patient denies associated symptoms such as dizziness or lightheadedness. Lydia iting results of an echocardiogram evaluation. Midodrine versus Florinef as agents are being considered. 3. Left vertebral artery occlusion Causative lesion for orthostatic hypotension. Also poses risk for stroke. Patient is on antiplatelet therapy with Plavix. VS,Fishbone, I+O VS, Fishbone, I+O Laboratory Tests 03/01/19 06:10 Red Blood Count 3.25 L, Mean Corpuscular Volume 98.2 H, Mean Corpuscular Hemoglobin 32.3, Mean Corpuscular Hemoglobin Concent 32.9, Red Cell Distribution Width 15.7 H, Calcium Level 7.6 L Vital Signs Date Time Temp Pulse Resp B/P (MAP) Pulse Ox O2 Delivery O2 Flow Rate FiO2 03/01/19 14:00 96.8 78 16 112/68 (83) 90 4.0 02/28/19 11:21 Nasal Cannula I&O- Last 24 Hours up to 6 AM 03/01/19 06:00 Intake Total 2206 ml Output Total 0 ml Balance 2206 ml GLORY LOPEZ MD Mar 01, 2019 15:02
--- NOTE | 2019-03-01 16:00 | ECHO ---
DATE OF STUDY: 02/28/2019 REFERRING PHYSICIAN: Dr. Vidya Mayfield 2-D MEASUREMENTS: Aortic root: 3.3 cm Left atrium: 3.9 cm Ventricular septum: 1.25 cm Posterior wall: 1.29 cm Left ventricle diastole: 3.2 cm LVOT: 1.9 cm Inferior vena cava: 1.9 cm DOPPLER MEASUREMENTS: Aortic valve velocity: 118 cm/s LVOT velocity: 109 cm/s LVOT VTI: 22.7 cm Mitral E velocity: 69.2 cm/s Mitral A velocity: 86.4 cm/s Mild tricuspid regurgitation. Pulmonary artery systolic pressure 21 mmHg by pulmonary acceleration. MITRAL ANNULAR TISSUE DOPPLER: E prime septal: 6.34 cm/s E prime lateral: 5.85 cm/s DESCRIPTION: Rhythm was sinus. Image quality was moderately technically difficult. This is a 2-D, M-mode, color flow Doppler and pulse waved Doppler examination and included mitral annular tissue Doppler. CONCLUSIONS: 1. Mild concentric left ventricular hypertrophy. Normal left ventricle regional wall motion and wall thickening. Normal LV systolic function. Left ventricular ejection fraction (LVEF) 65% by visual estimate. Grade 1 LV diastolic dysfunction. 2. No pericardial effusion. 3. Normal right ventricle size and systolic function. Normal pulmonary artery systolic pressure. 4. Mild aortic valve sclerosis of a 3-cusp aortic valve. No aortic regurgitation. 5. Mild mitral annular calcification. No mitral regurgitation. 6. Appearance of ascites around the liver.
[2019-03-01] MEDS: ALBUTEROL SULFATE 2.5 MG/0.5 ML INH NEB SOLN INH PRN (19:26)
[2019-03-01] MEDS: CLOPIDOGREL 75 MG TAB PO SCH (20:20)
[2019-03-01] MEDS: FAMOTIDINE 20 MG TAB PO SCH (20:20)
[2019-03-01] MEDS: PERCOCET 5MG/325MG TAB PO PRN (22:06)
[2019-03-02] VITALS (10 sets, daily range): BP systolic 103–140; BP diastolic 63–79; O2SAT 92–95
[2019-03-02 06:37] LABS: HEMATOCRIT 31.3 % (42.0-52.0); HEMOGLOBIN 10.5 g/dl (13.5-17.5); MEAN CORPUSCULAR HEMOGLOBIN 32.9 pg (27.0-33.0); MEAN CORPUSCULAR HGB CONC 33.5 g/dl (32.0-36.5); MEAN CORPUSCULAR VOLUME 98.1 fl (80.0-96.0); RED BLOOD COUNT 3.19 10^6/uL (4.30-6.10); WHITE BLOOD COUNT 7.2 10^3/uL (4.0-10.0)
[2019-03-02 06:40] LABS: PLATELET COUNT, AUTOMATED 57 10^3/uL (150-450)
[2019-03-02 06:54] LABS: BLOOD UREA NITROGEN 12 MG/DL (7-18); CALCIUM LEVEL 7.9 MG/DL (8.8-10.2); CARBON DIOXIDE LEVEL 27 MEQ/L (21-32); CHLORIDE LEVEL 108 MEQ/L (98-107); CREATININE FOR GFR 0.68 MG/DL (0.70-1.30); GLOMERULAR FILTRATION RATE > 60.0 (>42); GLUCOSE, FASTING 103 MG/DL (70-100); POTASSIUM SERUM 3.5 MEQ/L (3.5-5.1); SODIUM LEVEL 139 MEQ/L (136-145)
[2019-03-02] MEDS: HumaLOG INSULIN (NovoLOG) PER UNIT SC SCH ×4 (07:30→21:00)
[2019-03-02] MEDS: DOCUSATE SODIUM 100 MG CAP PO SCH ×2 (08:03→21:04)
[2019-03-02] MEDS: POTASSIUM CHLORIDE 10 MEQ SR TABLET PO SCH (08:03)
[2019-03-02] MEDS: DONEPEZIL 5 MG TAB PO SCH (08:03)
[2019-03-02] MEDS: CitaloPRAM (CeleXA) 20 MG TAB PO SCH (08:03)
[2019-03-02] MEDS: ATORVASTATIN 20 MG TAB PO SCH (08:03)
[2019-03-02] MEDS: PERCOCET 5MG/325MG TAB PO PRN ×2 (08:05→23:23)
[2019-03-02] MEDS: VILANTEROL INH SCH (08:51)
[2019-03-02] MEDS: INCRUSE ELLIPTA INH SCH (08:51)
[2019-03-02] MEDS: FLUTICASONE FUROATE INH SCH (08:51)
[2019-03-02] MEDS: ALBUTEROL SULFATE 2.5 MG/0.5 ML INH NEB SOLN INH PRN ×2 (11:21→15:33)
--- NOTE | 2019-03-02 16:53 | IPNPDOC ---
Date Seen The patient was seen on 03/02/19. Progress Note SUBJECTIVE: still c/o dizziness and lightheadedness when he gets up and tries to stand up. he remains orthostatic despite being positive balance, but denies any sob, palpitations, or recurrent falls. no recurrent epistaxis, but desaturates when he ambulates. still with nasal packing s/p nasal cautery and septoplasty by Dr. Bhandari on 02/27/19 and back on plavix. OBJECTIVE: Vital signs: pls see below HEENT: ecchymosis around the eyes. nasal packing and bandages. nasal cannula no conversational dyspnea. Heart: S1, S2. Sinus tachycardia. Lungs: Clear to auscultation. No wheezing, rales, or rhonchi. Abdomen: Soft, nontender, nondistended. Positive bowel sounds. No rebound or guarding. Extremities: No cyanosis, clubbing. No pitting edema. LABORATORY DATA,IMAGING STUDIES, MICROBIOLOGY: REVIEWED, PLS SEE BELOW CURRENT MEDICATIONS: plavix,hypoglycemic protocol,Pepcid, normal saline bolus, Tylenol 650 as needed, Milk of Magnesia, Mylanta, Proventil, Percocet, atorvastatin,Colace, Celexa, Aricept,potassium, Symbicort, midodrine ASSESSMENT AND PLAN: This is a 73-year-old with diabetes, CAD, reflux, hypercholesterolemia, sleep apnea, allergic rhinitis, chronic thrombocytopenia, fatty liver, memory loss, lung nodules, chronic right bundle branch block, Clostridium (C) difficile July 2018, presented with epistaxis after he had fallen due to orthostatic hypotension due to left vertebral artery occlusion. The patient has chronic intermittent lightheadedness and has been on chronic Plavix due to risk of stroke. The patient had a fall at home with a fracture sternum and nasal deviation and fracture. CURRENT ISSUES: Acute blood anemia secondary to epistaxis, resolved after blood transfusion. The patient had 3 units of red blood cell (RBC) transfused with hemoglobin increasing from 8.4 to 11.3. Platelet count is still low but no active signs of bleeding. Plavix was held on admission initially, but resumed 02/28/[address] Bhandari. no recurrent epistaxis, brbpr, coffee ground emesis, or melena. Left vertebral artery occlusion. At risk for stroke. Off Plavix from admission due to acute blood loss anemia from fall and epistaxis.resumed plavix 02/28/[address] Bhandari. continued on Lipitor. Per Dr. Simon, Echo checked and without significant abnormalities that could contribute to orthostasis. fu with Neurology outpt for further evaluation for vertigo. OT/PT consulted Orthostatic hypotension due to vertebral artery occlusion. s/p ivfluid trials and encouraged to increase po fluid intake. Echo ordered per Dr. Simon, Neurology recommendations prior to trial of midodrine or florinef. echo reviewed, and no obvious contributing factor to recurrent falls. Per Dr. Torres 03/02/19 452pm, ok to start on low dose midodrine as fluid boluses place pt at risk of heart failure. midodrine 2.5 mg at 0800, 1200,, 1600 before the pt gets out of bed. Hemorrhagic shock due to epistaxis,resolved. Sternal fracture from prior traumatic fall and syncope symptomatic care. Physical therapy and acute rehab. Chronic obstructive pulmonary disease (COPD) without exacerbation. Currently on pulmonary toilet, nebulizers, and incentive spirometry. Thrombocytopenia. No transfusions unless platelet count is less than 50 for surgery. Plavix has been held due to recent active bleeding and blood loss anemia. resumed plavix after septoplasty without recurrent bleeding. No Lovenox or heparin, and hold the aspirin. Type 2 diabetes. On hypoglycemic protocol, long-term insulin, before food, nightly fingersticks, on Trulicity once a week. May consider Levemir if needed. DISPOSITION: physical therapy (PT), occupational therapy (OT) consulted and possible acute rehabilitation unit (ARU). VS, I&O, 24H, Fishbone Vital Signs/I&O Vital Signs Date Time Temp Pulse Resp B/P (MAP) Pulse Ox O2 Delivery O2 Flow Rate FiO2 03/02/19 14:00 98.2 98 19 122/70 (87) 90 4.0 03/02/19 09:00 Nasal Cannula I&O- Last 24 Hours up to 6 AM 03/02/19 06:00 Intake Total 1160 ml Output Total 0 ml Balance 1160 ml Laboratory Data 24H LABS Laboratory Tests 2 03/01/19 20:17: Bedside Glucose (Misc Panel) 134H 03/01/19 22:15: Bedside Glucose (Misc Panel) 111H 03/02/19 06:10: Nucleated Red Blood Cells % (auto) 0.0, Anion Gap 4L, Glomerular Filtration Rate > 60.0, Blood Urea Nitrogen 12, Creatinine 0.68L, Sodium Level 139, Potassium Level 3.5, Chloride Level 108H, Carbon Dioxide Level 27, Calcium Level 7.9L 03/02/19 11:19: Bedside Glucose (Misc Panel) 141H 03/02/19 16:30: Bedside Glucose (Misc Panel) 169H CBC/BMP Laboratory Tests 03/02/19 06:10 Red Blood Count 3.19 L, Mean Corpuscular Volume 98.1 H, Mean Corpuscular Hemoglobin 32.9, Mean Corpuscular Hemoglobin Concent 33.5, Red Cell Distribution Width 15.6 H, Calcium Level 7.9 L CATRACHITA DANIELS MD Mar 02, 2019 16:53
[2019-03-02] MEDS: FAMOTIDINE 20 MG TAB PO SCH (21:04)
[2019-03-02] MEDS: CLOPIDOGREL 75 MG TAB PO SCH (21:04)
[2019-03-03] VITALS (8 sets, daily range): BP systolic 86–131; BP diastolic 30–72; O2SAT 95
[2019-03-03 05:49] LABS: HEMATOCRIT 31.9 % (42.0-52.0); HEMOGLOBIN 10.7 g/dl (13.5-17.5); MEAN CORPUSCULAR HGB CONC 33.5 g/dl (32.0-36.5); MEAN CORPUSCULAR VOLUME 101.3 fl (80.0-96.0); RED BLOOD COUNT 3.15 10^6/uL (4.30-6.10); WHITE BLOOD COUNT 7.4 10^3/uL (4.0-10.0)
[2019-03-03 05:51] LABS: PLATELET COUNT, AUTOMATED 60 10^3/uL (150-450)
[2019-03-03] MEDS: PERCOCET 5MG/325MG TAB PO PRN ×3 (06:05→23:04)
[2019-03-03 06:10] LABS: BLOOD UREA NITROGEN 13 MG/DL (7-18); CALCIUM LEVEL 7.9 MG/DL (8.8-10.2); CARBON DIOXIDE LEVEL 28 MEQ/L (21-32); CHLORIDE LEVEL 107 MEQ/L (98-107); CREATININE FOR GFR 0.68 MG/DL (0.70-1.30); GLOMERULAR FILTRATION RATE > 60.0 (>42); GLUCOSE, FASTING 99 MG/DL (70-100); POTASSIUM SERUM 3.8 MEQ/L (3.5-5.1); SODIUM LEVEL 140 MEQ/L (136-145)
[2019-03-03] MEDS: HumaLOG INSULIN (NovoLOG) PER UNIT SC SCH ×4 (07:30→20:28)
[2019-03-03] MEDS: VILANTEROL INH SCH (08:15)
[2019-03-03] MEDS: FLUTICASONE FUROATE INH SCH (08:15)
[2019-03-03] MEDS: INCRUSE ELLIPTA INH SCH (08:15)
[2019-03-03] MEDS: MIDODRINE 2.5 MG TAB PO SCH ×3 (08:47→16:41)
[2019-03-03] MEDS: CitaloPRAM (CeleXA) 20 MG TAB PO SCH (08:47)
[2019-03-03] MEDS: DOCUSATE SODIUM 100 MG CAP PO SCH ×2 (08:47→20:28)
[2019-03-03] MEDS: POTASSIUM CHLORIDE 10 MEQ SR TABLET PO SCH (08:47)
[2019-03-03] MEDS: ATORVASTATIN 20 MG TAB PO SCH (08:47)
[2019-03-03] MEDS: DONEPEZIL 5 MG TAB PO SCH (08:47)
[2019-03-03 09:18] LABS: NT-PRO BNP 307 PG/ML (<125)
--- NOTE | 2019-03-03 09:27 | REP ---
Clinical: Shortness of breath. Comparison: 02/25/2019. Findings: Mediastinum and cardiac silhouette are stable with mild cardiomegaly again suggested. Lung lopez demonstrate diffuse chronic fibrosis and interstitial changes. No obvious consolidation, effusion, or pneumothorax. Skeletal structures stable. Impression: Diffuse chronic stable interstitial changes and fibrosis. No obvious acute process. Electronically Signed by Jr Vega MD 03/03/2019 09:19 A
[2019-03-03] MEDS: ALBUTEROL SULFATE 2.5 MG/0.5 ML INH NEB SOLN INH PRN ×2 (11:22→15:38)
--- NOTE | 2019-03-03 14:46 | IPNPDOC ---
Date Seen The patient was seen on 03/03/19. Progress Note SUBJECTIVE: desaturated to 89% on 4liters nasal cannula yesterday. no dizziness or lightheadedness. no sob, harrison, chest pain,pressure. OBJECTIVE: Vital signs: pls see below HEENT: ecchymosis around the eyes. nasal packing and bandages. nasal cannula no conversational dyspnea. nasal cannula on Heart: S1, S2. Sinus tachycardia. Lungs: Clear to auscultation. No wheezing, rales, or rhonchi. Abdomen: Soft, nontender, nondistended. Positive bowel sounds. No rebound or guarding. Extremities: No cyanosis, clubbing. No pitting edema. LABORATORY DATA,IMAGING STUDIES, MICROBIOLOGY: REVIEWED, PLS SEE BELOW CURRENT MEDICATIONS: plavix, midodrine, hypoglycemic protocol,Pepcid, normal saline bolus, Tylenol 650 as needed, Milk of Magnesia, Mylanta, Proventil, Percocet, atorvastatin,Colace, Celexa, Aricept,potassium, Symbicort, midodrine ASSESSMENT AND PLAN: This is a 73-year-old with diabetes, CAD, reflux, hypercholesterolemia, sleep apnea, allergic rhinitis, chronic thrombocytopenia, fatty liver, memory loss, lung nodules, chronic right bundle branch block, Clostridium (C) difficile July 2018, presented with epistaxis after he had fallen due to orthostatic hypotension due to left vertebral artery occlusion. The patient has chronic intermittent lightheadedness and has been on chronic Plavix due to risk of stroke. The patient had a fall at home with a fracture sternum and nasal deviation and fracture. CURRENT ISSUES: Acute blood anemia secondary to epistaxis, resolved after blood transfusion. The patient had 3 units of red blood cell (RBC) transfused with hemoglobin increasing from 8.4 to 11.3. Platelet count is still low but no active signs of bleeding. Plavix was held on admission initially, but resumed 02/28/[address] Bhandari. no recurrent epistaxis, brbpr, coffee ground emesis, or melena. Acute hypoxic respiratory failure due to deviated septum from recent fall s/p septoplasty by ENT. still desaturates to 89% on 4liters nasal cannula. titrate o2 to >90%. Left vertebral artery occlusion. At risk for stroke. Off Plavix from admission due to acute blood loss anemia from fall and epistaxis.resumed plavix 02/28/[address] Bhandari. continued on Lipitor. Per Dr. Simon, Echo checked and without significant abnormalities that could contribute to orthostasis. fu with Neurology outpt for further evaluation for vertigo. OT/PT consulted Orthostatic hypotension due to vertebral artery occlusion. s/p ivfluid trials and encouraged to increase po fluid intake. Echo ordered per Dr. Simon, Neurology recommendations prior to trial of midodrine or florinef. echo reviewed, and no obvious contributing factor to recurrent falls. Per Dr. Torres 03/02/19 452pm, ok to start on low dose midodrine as fluid boluses place pt at risk of heart failure. midodrine 2.5 mg at 0800, 1200,, 1600 before the pt gets out of bed. Hemorrhagic shock due to epistaxis,resolved. Sternal fracture from prior traumatic fall and syncope symptomatic care. Physical therapy and acute rehab. Chronic obstructive pulmonary disease (COPD) without exacerbation. Currently on pulmonary toilet, nebulizers, and incentive spirometry. Thrombocytopenia. No transfusions unless platelet count is less than 50 for surgery. Plavix has been held due to recent active bleeding and blood loss anemia. resumed plavix after septoplasty without recurrent bleeding. No Lovenox or heparin, and hold the aspirin. Type 2 diabetes. On hypoglycemic protocol, long-term insulin, before food, nightly fingersticks, on Trulicity once a week. May consider Levemir if needed. DISPOSITION: physical therapy (PT), occupational therapy (OT) consulted and possible acute rehabilitation unit (ARU). VS, I&O, 24H, Fishbone Vital Signs/I&O Vital Signs Date Time Temp Pulse Resp B/P (MAP) Pulse Ox O2 Delivery O2 Flow Rate FiO2 03/03/19 14:41 18 03/03/19 10:00 97.7 93 120/60 (80) 95 4.0 03/03/19 09:00 Nasal Cannula I&O- Last 24 Hours up to 6 AM 03/03/19 06:00 Intake Total 1332 ml Output Total 0 ml Balance 1332 ml Laboratory Data 24H LABS Laboratory Tests 2 03/02/19 16:30: Bedside Glucose (Misc Panel) 169H 03/02/19 20:24: Bedside Glucose (Misc Panel) 160H 03/03/19 05:37: Nucleated Red Blood Cells % (auto) 0.0, Immature Platelet Fraction 8.3, Anion Gap 5L, Glomerular Filtration Rate > 60.0, Blood Urea Nitrogen 13, Creatinine 0.68L, Sodium Level 140, Potassium Level 3.8, Chloride Level 107, Carbon Dioxide Level 28, Calcium Level 7.9L, VG-Rff-X-Type Natriuretic Peptide 307H 03/03/19 11:50: Bedside Glucose (Misc Panel) 128H CBC/BMP Laboratory Tests 03/03/19 05:37 Red Blood Count 3.15 L, Mean Corpuscular Volume 101.3 H, Mean Corpuscular Hemoglobin 34.0 H, Mean Corpuscular Hemoglobin Concent 33.5, Red Cell Distribution Width 15.8 H, Calcium Level 7.9 L CATRACHITA DANIELS MD Mar 03, 2019 14:46
[2019-03-03] MEDS: CLOPIDOGREL 75 MG TAB PO SCH (20:28)
[2019-03-03] MEDS: FAMOTIDINE 20 MG TAB PO SCH (20:28)
[2019-03-04] VITALS (7 sets, daily range): BP systolic 89–148; BP diastolic 50–73; O2SAT 94–100
[2019-03-04 06:31] LABS: HEMATOCRIT 34.6 % (42.0-52.0); HEMOGLOBIN 11.3 g/dl (13.5-17.5); MEAN CORPUSCULAR HEMOGLOBIN 33.2 pg (27.0-33.0); MEAN CORPUSCULAR HGB CONC 32.7 g/dl (32.0-36.5); MEAN CORPUSCULAR VOLUME 101.8 fl (80.0-96.0); WHITE BLOOD COUNT 7.1 10^3/uL (4.0-10.0)
[2019-03-04 06:33] LABS: PLATELET COUNT, AUTOMATED 66 10^3/uL (150-450)
[2019-03-04] MEDS: PERCOCET 5MG/325MG TAB PO PRN ×3 (06:53→21:27)
[2019-03-04 07:00] LABS: BLOOD UREA NITROGEN 12 MG/DL (7-18); CALCIUM LEVEL 8.2 MG/DL (8.8-10.2); CARBON DIOXIDE LEVEL 28 MEQ/L (21-32); CHLORIDE LEVEL 107 MEQ/L (98-107); CREATININE FOR GFR 0.78 MG/DL (0.70-1.30); GLOMERULAR FILTRATION RATE > 60.0 (>42); GLUCOSE, FASTING 97 MG/DL (70-100); POTASSIUM SERUM 4.2 MEQ/L (3.5-5.1); SODIUM LEVEL 140 MEQ/L (136-145)
[2019-03-04] MEDS: HumaLOG INSULIN (NovoLOG) PER UNIT SC SCH ×4 (07:30→21:00)
[2019-03-04] MEDS: VILANTEROL INH SCH (08:10)
[2019-03-04] MEDS: FLUTICASONE FUROATE INH SCH (08:10)
[2019-03-04] MEDS: CitaloPRAM (CeleXA) 20 MG TAB PO SCH (08:23)
[2019-03-04] MEDS: DOCUSATE SODIUM 100 MG CAP PO SCH ×2 (08:23→21:26)
[2019-03-04] MEDS: MIDODRINE 2.5 MG TAB PO SCH ×3 (08:23→15:32)
[2019-03-04] MEDS: ATORVASTATIN 20 MG TAB PO SCH (08:23)
[2019-03-04] MEDS: DONEPEZIL 5 MG TAB PO SCH (08:23)
[2019-03-04] MEDS: POTASSIUM CHLORIDE 10 MEQ SR TABLET PO SCH (08:24)
[2019-03-04] MEDS: INCRUSE ELLIPTA INH SCH (08:38)
--- NOTE | 2019-03-04 14:20 | IPNPDOC ---
Date Seen The patient was seen on 03/04/19. Progress Note SUBJECTIVE: has been on midodrine, and denies dizziness or lightheadedness. still on oxygen, nasal packing dressing intact s/p septoplasty. CXR: no edema. pt has an appt with Dr. Bhandari on Tuesday morning, and feels his balance is better. Awaiting physical therapy clearance for discharge home. OBJECTIVE: Vital signs: pls see below General: AAOx3 o2 nasal cannula HEENT: ecchymosis around the eyes. nasal bandages. nasal cannula no conversational dyspnea. nasal cannula on Heart: S1, S2. Sinus tachycardia. Lungs: Clear to auscultation. No wheezing, rales, or rhonchi. Abdomen: Soft, nontender, nondistended. Positive bowel sounds. No rebound or guarding. Extremities: No cyanosis, clubbing. No pitting edema. LABORATORY DATA,IMAGING STUDIES, MICROBIOLOGY: REVIEWED, PLS SEE BELOW CURRENT MEDICATIONS: plavix, midodrine, hypoglycemic protocol,Pepcid, normal saline bolus, Tylenol 650 as needed, Milk of Magnesia, Mylanta, Proventil, Percocet, atorvastatin,Colace, Celexa, Aricept,potassium, Symbicort, midodrine ASSESSMENT AND PLAN: This is a 73-year-old with diabetes, CAD, reflux, hypercholesterolemia, sleep apnea, allergic rhinitis, chronic thrombocytopenia, fatty liver, memory loss, lung nodules, chronic right bundle branch block, Clostridium (C) difficile July 2018, presented with epistaxis after he had fallen due to orthostatic hypotension due to left vertebral artery occlusion. The patient has chronic intermittent lightheadedness and has been on chronic Plavix due to risk of stroke. The patient had a fall at home with a fracture sternum and nasal deviation and fracture. CURRENT ISSUES: Acute blood anemia secondary to epistaxis, resolved after blood transfusion. The patient had 3 units of red blood cell (RBC) transfused with hemoglobin increasing from 8.4 to 11.3. Platelet count is still low but no active signs of bleeding. Plavix was held on admission initially, but resumed 02/28/[address] Bhandari. no recurrent epistaxis, brbpr, coffee ground emesis, or melena. Acute hypoxic respiratory failure due to deviated septum from recent fall s/p septoplasty by ENT. still desaturates to 89% on 4liters nasal cannula. titrate o2 to >90%. may need oxygen temporarily. CXR: no edema. Left vertebral artery occlusion. At risk for stroke. Off Plavix from admission due to acute blood loss anemia from fall and epistaxis.resumed plavix 02/28/[address] Bhandari. continued on Lipitor. Per Dr. Simon, Echo checked and without significant abnormalities that could contribute to orthostasis. fu with Neurology outpt for further evaluation for vertigo. OT/PT consulted Orthostatic hypotension due to vertebral artery occlusion. s/p ivfluid trials and encouraged to increase po fluid intake. Echo ordered per Dr. Simon, Neurology recommendations prior to trial of midodrine or florinef. echo reviewed, and no obvious contributing factor to recurrent falls. Per Dr. Torres 03/02/19 452pm, ok to start on low dose midodrine as fluid boluses place pt at risk of heart failure. midodrine 2.5 mg at 0800, 1200,, 1600 before the pt gets out of bed. has not had any recurrent dizziness or lightheadedness. Hemorrhagic shock due to epistaxis,resolved. Sternal fracture from prior traumatic fall and syncope symptomatic care. Physical therapy and acute rehab. Chronic obstructive pulmonary disease (COPD) without exacerbation. Currently on pulmonary toilet, nebulizers, and incentive spirometry. Thrombocytopenia. No transfusions unless platelet count is less than 50 for surgery. Plavix has been held due to recent active bleeding and blood loss anemia. resumed plavix after septoplasty without recurrent bleeding. No Lovenox or heparin, and hold the aspirin. Type 2 diabetes. On hypoglycemic protocol, long-term insulin, before food, nightly fingersticks, on Trulicity once a week. May consider Levemir if needed. DISPOSITION: awaiting physical therapy clearance. may need oxygen at hospital discharge. VS, I&O, 24H, Fishbone Vital Signs/I&O Vital Signs Date Time Temp Pulse Resp B/P (MAP) Pulse Ox O2 Delivery O2 Flow Rate FiO2 03/04/19 12:50 16 03/04/19 09:00 4.0 03/04/19 09:00 94 Nasal Cannula 03/04/19 09:00 93 109/61 (77) 99 100/58 (72) 118 89/50 (63) 03/04/19 06:00 97.6 I&O- Last 24 Hours up to 6 AM0 03/04/19 05:59 Intake Total 1000 ml Output Total 1125 ml Balance -125 ml Laboratory Data 24H LABS Laboratory Tests 2 03/03/19 16:45: Bedside Glucose (Misc Panel) 116H 03/03/19 20:12: Bedside Glucose (Misc Panel) 127H 03/04/19 06:05: Nucleated Red Blood Cells % (auto) 0.0, Immature Platelet Fraction 9.2, Anion Gap 5L, Glomerular Filtration Rate > 60.0, Blood Urea Nitrogen 12, Creatinine 0.78, Sodium Level 140, Potassium Level 4.2, Chloride Level 107, Carbon Dioxide Level 28, Calcium Level 8.2L 03/04/19 11:52: Bedside Glucose (Misc Panel) 107 CBC/BMP Laboratory Tests 03/04/19 06:05 Red Blood Count 3.40 L, Mean Corpuscular Volume 101.8 H, Mean Corpuscular Hemoglobin 33.2 H, Mean Corpuscular Hemoglobin Concent 32.7, Red Cell Distribution Width 15.6 H, Calcium Level 8.2 L CATRACHITA DANIELS MD Mar 04, 2019 14:20
[2019-03-04] MEDS ORDERED: LEVALBUTEROL 1.25 MG/0.5 ML CONCENTRATE NEB INH PRN (20:15)
[2019-03-04] MEDS ORDERED: predniSONE 20 MG TAB PO ONE (20:15)
[2019-03-04] MEDS: CLOPIDOGREL 75 MG TAB PO SCH (21:25)
[2019-03-04] MEDS: FAMOTIDINE 20 MG TAB PO SCH (21:26)
[2019-03-04] MEDS: LEVALBUTEROL 1.25 MG/0.5 ML CONCENTRATE NEB INH SCH (23:26)
[2019-03-05] VITALS (7 sets, daily range): BP systolic 104–129; BP diastolic 59–75; O2SAT 91
[2019-03-05] MEDS: LEVALBUTEROL 1.25 MG/0.5 ML CONCENTRATE NEB INH SCH ×6 (03:52→23:59)
[2019-03-05] MEDS: PERCOCET 5MG/325MG TAB PO PRN ×2 (05:48→14:24)
[2019-03-05 06:03] LABS: HEMATOCRIT 34.6 % (42.0-52.0); HEMOGLOBIN 11.6 g/dl (13.5-17.5); MEAN CORPUSCULAR HEMOGLOBIN 33.9 pg (27.0-33.0); MEAN CORPUSCULAR HGB CONC 33.5 g/dl (32.0-36.5); MEAN CORPUSCULAR VOLUME 101.2 fl (80.0-96.0); PLATELET COUNT, AUTOMATED 64 10^3/uL (150-450); RED BLOOD COUNT 3.42 10^6/uL (4.30-6.10)
[2019-03-05 06:23] LABS: BLOOD UREA NITROGEN 15 MG/DL (7-18); CALCIUM LEVEL 8.3 MG/DL (8.8-10.2); CARBON DIOXIDE LEVEL 26 MEQ/L (21-32); CHLORIDE LEVEL 105 MEQ/L (98-107); CREATININE FOR GFR 0.82 MG/DL (0.70-1.30); GLOMERULAR FILTRATION RATE > 60.0 (>42); GLUCOSE, FASTING 175 MG/DL (70-100); POTASSIUM SERUM 4.2 MEQ/L (3.5-5.1); SODIUM LEVEL 139 MEQ/L (136-145)
[2019-03-05] MEDS: HumaLOG INSULIN (NovoLOG) PER UNIT SC SCH ×4 (07:30→20:36)
[2019-03-05] MEDS: FLUTICASONE FUROATE INH SCH (07:34)
[2019-03-05] MEDS: VILANTEROL INH SCH (07:34)
[2019-03-05] MEDS: INCRUSE ELLIPTA INH SCH (07:36)
[2019-03-05] MEDS: ATORVASTATIN 20 MG TAB PO SCH (08:53)
[2019-03-05] MEDS: DOCUSATE SODIUM 100 MG CAP PO SCH ×2 (08:53→20:28)
[2019-03-05] MEDS: DONEPEZIL 5 MG TAB PO SCH (08:53)
[2019-03-05] MEDS: predniSONE 20 MG TAB PO SCH ×2 (08:53→20:28)
[2019-03-05] MEDS: POTASSIUM CHLORIDE 10 MEQ SR TABLET PO SCH (08:54)
[2019-03-05] MEDS: CitaloPRAM (CeleXA) 20 MG TAB PO SCH (08:54)
[2019-03-05] MEDS: MIDODRINE 2.5 MG TAB PO SCH ×3 (09:05→16:00)
--- NOTE | 2019-03-05 14:43 | IPNPDOC ---
Date Seen The patient was seen on 03/05/19. Progress Note SUBJECTIVE: still desaturates with ambulation, needing 4liters o2. no recurrent epistaxis. better sob with prednisone but not cleared by physical therapy no dizziness and lightheadedness. afebrile no chills. no chest pain. OBJECTIVE: Vital signs: pls see below General: AAOx3 on o2 nasal cannula HEENT: no jvd no cervical LADecchymosis around the eyes. nasal bandages. no conversational dyspnea. nasal cannula on Heart: S1, S2. Sinus tachycardia. Lungs: diminished bilateral coarse rhonchi. Abdomen: no HSM Soft, nontender, nondistended. Positive bowel sounds. No rebound or guarding. no abdominal bruits Extremities: No cyanosis, clubbing. No pitting edema. LABORATORY DATA,IMAGING STUDIES, MICROBIOLOGY: REVIEWED, PLS SEE BELOW CURRENT MEDICATIONS: plavix, midodrine, hypoglycemic protocol,Pepcid, normal saline bolus, Tylenol 650 as needed, Milk of Magnesia, Mylanta, Proventil, Percocet, atorvastatin,Colace, Celexa, Aricept,potassium, Symbicort, midodrine ASSESSMENT AND PLAN: This is a 73-year-old with diabetes, CAD, reflux, hypercholesterolemia, sleep apnea, allergic rhinitis, chronic thrombocytopenia, fatty liver, memory loss, lung nodules, chronic right bundle branch block, Clostridium (C) difficile July 2018, presented with epistaxis after he had fallen due to orthostatic hypotension due to left vertebral artery occlusion. The patient has chronic intermittent lightheadedness and has been on chronic Plavix due to risk of stroke. The patient had a fall at home with a fracture sternum and nasal deviation and fracture. CURRENT ISSUES: Acute blood anemia secondary to epistaxis, resolved after blood transfusion. The patient had 3 units of red blood cell (RBC) transfused with hemoglobin increasing from 8.4 to 11.3. Platelet count is still low but no active signs of bleeding. Plavix was held on admission initially, but resumed 02/28/[address] Bhandari. no recurrent epistaxis, brbpr, coffee ground emesis, or melena. Acute hypoxic respiratory failure due to deviated septum from recent fall s/p septoplasty by ENT and copd exacerb. still desaturates to 89% on 4liters nasal cannula. titrate o2 to >90%. may need oxygen temporarily. CXR: no edema. being treated with po prednisone Left vertebral artery occlusion. At risk for stroke. Off Plavix from admission due to acute blood loss anemia from fall and epistaxis.resumed plavix 02/28/[address] Bhandari. continued on Lipitor. Per Dr. Simon, Echo checked and without significant abnormalities that could contribute to orthostasis. fu with Neurology outpt for further evaluation for vertigo. OT/PT consulted Orthostatic hypotension due to vertebral artery occlusion. s/p ivfluid trials and encouraged to increase po fluid intake. Echo ordered per Dr. Simon, Neurology recommendations prior to trial of midodrine or florinef. echo reviewed, and no obvious contributing factor to recurrent falls. Per Dr. Torres 03/02/19 452pm, ok to start on low dose midodrine as fluid boluses place pt at risk of heart failure. midodrine 2.5 mg at 0800, 1200,, 1600 before the pt gets out of bed. has not had any recurrent dizziness or lightheadedness. nasal fracture with epistaxis due to fall has appt tomorrow for fu w Dr. Bhandari, but has not passed hse. RN to cancel outpt appt if pt cannot be cleared by physical therapy today. will need Dr. Bhandari to see the patient on the floor for postop f/u in am. Hemorrhagic shock due to epistaxis,resolved. Sternal fracture from prior traumatic fall and syncope symptomatic care. Physical therapy and acute rehab. Chronic obstructive pulmonary disease (COPD) without exacerbation. Currently on pulmonary toilet, nebulizers, and incentive spirometry. Thrombocytopenia. No transfusions unless platelet count is less than 50 for surgery. Plavix has been held due to recent active bleeding and blood loss anemia. resumed plavix after septoplasty without recurrent bleeding. No Lovenox or heparin, and hold the aspirin. Type 2 diabetes. On hypoglycemic protocol, long-term insulin, before food, nightly fingersticks, on Trulicity once a week. May consider Levemir if needed. DISPOSITION: awaiting physical therapy clearance. may need oxygen at hospital discharge. VS, I&O, 24H, Fishbone Vital Signs/I&O Vital Signs Date Time Temp Pulse Resp B/P (MAP) Pulse Ox O2 Delivery O2 Flow Rate FiO2 03/05/19 14:24 18 116/70 4.0 03/05/19 14:00 98.1 116 91 03/05/19 11:00 Nasal Cannula I&O- Last 24 Hours up to 6 AM 03/05/19 06:00 Intake Total 2190 ml Output Total 1600 ml Balance 590 ml Laboratory Data 24H LABS Laboratory Tests 2 03/04/19 17:03: Bedside Glucose (Misc Panel) 124H 03/04/19 20:32: Bedside Glucose (Misc Panel) 185H 03/05/19 05:47: Nucleated Red Blood Cells % (auto) 0.0, Anion Gap 8, Glomerular Filtration Rate > 60.0, Blood Urea Nitrogen 15, Creatinine 0.82, Sodium Level 139, Potassium Level 4.2, Chloride Level 105, Carbon Dioxide Level 26, Calcium Level 8.3L 03/05/19 11:16: Bedside Glucose (Misc Panel) 157H CBC/BMP Laboratory Tests 03/05/19 05:47 Red Blood Count 3.42 L, Mean Corpuscular Volume 101.2 H, Mean Corpuscular Hemoglobin 33.9 H, Mean Corpuscular Hemoglobin Concent 33.5, Red Cell Distribution Width 15.1 H, Calcium Level 8.3 L CATRACHITA DANIELS MD Mar 05, 2019 14:43
[2019-03-05] MEDS: FAMOTIDINE 20 MG TAB PO SCH (20:28)
[2019-03-05] MEDS: CLOPIDOGREL 75 MG TAB PO SCH (20:28)
[2019-03-06] VITALS (8 sets, daily range): BP systolic 104–136; BP diastolic 59–74; O2SAT 94
[2019-03-06] MEDS: LEVALBUTEROL 1.25 MG/0.5 ML CONCENTRATE NEB INH SCH ×5 (04:24→21:10)
[2019-03-06 06:33] LABS: HEMATOCRIT 31.1 % (42.0-52.0); HEMOGLOBIN 10.2 g/dl (13.5-17.5); MEAN CORPUSCULAR HEMOGLOBIN 33.1 pg (27.0-33.0); MEAN CORPUSCULAR HGB CONC 32.8 g/dl (32.0-36.5); RED BLOOD COUNT 3.08 10^6/uL (4.30-6.10); WHITE BLOOD COUNT 9.8 10^3/uL (4.0-10.0)
[2019-03-06 06:35] LABS: PLATELET COUNT, AUTOMATED 62 10^3/uL (150-450)
[2019-03-06 06:51] LABS: BLOOD UREA NITROGEN 19 MG/DL (7-18); CALCIUM LEVEL 8.3 MG/DL (8.8-10.2); CARBON DIOXIDE LEVEL 28 MEQ/L (21-32); CHLORIDE LEVEL 107 MEQ/L (98-107); GLOMERULAR FILTRATION RATE > 60.0 (>42); GLUCOSE, FASTING 175 MG/DL (70-100); POTASSIUM SERUM 4.1 MEQ/L (3.5-5.1); SODIUM LEVEL 139 MEQ/L (136-145)
[2019-03-06] MEDS: INCRUSE ELLIPTA INH SCH (07:17)
[2019-03-06] MEDS: FLUTICASONE FUROATE INH SCH (07:17)
[2019-03-06] MEDS: VILANTEROL INH SCH (07:17)
[2019-03-06] MEDS: MIDODRINE 2.5 MG TAB PO SCH ×3 (07:59→16:24)
[2019-03-06] MEDS: CitaloPRAM (CeleXA) 20 MG TAB PO SCH (07:59)
[2019-03-06] MEDS: ACETAMINOPHEN TAB 650MG DOSE (2X325MG) PO PRN (08:00)
[2019-03-06] MEDS: DOCUSATE SODIUM 100 MG CAP PO SCH ×2 (08:00→20:02)
[2019-03-06] MEDS: POTASSIUM CHLORIDE 10 MEQ SR TABLET PO SCH (08:00)
[2019-03-06] MEDS: ATORVASTATIN 20 MG TAB PO SCH (08:00)
[2019-03-06] MEDS: DONEPEZIL 5 MG TAB PO SCH (08:00)
[2019-03-06] MEDS: predniSONE 20 MG TAB PO SCH (08:03)
[2019-03-06] MEDS: HumaLOG INSULIN (NovoLOG) PER UNIT SC SCH ×4 (08:03→20:03)
--- NOTE | 2019-03-06 11:58 | IPNPDOC ---
Text Note Date of Service The patient was seen on 03/06/19. NOTE SUBJECTIVE: still desaturates with ambulation, needing 4liters to 6 liters o2. On 1 liter at rest. No recurrent epistaxis. Denies any SOB but clinically on ambulation he is becoming dyspnic and needing increased oxygen. He was again lightheaded and dizzy this am. OBJECTIVE: Vital signs: pls see below General: AAOx3 on o2 nasal cannula HEENT: Trauma of the nasal bone, ecchymosis around the eyes. nasal bandages. no conversational dyspnea. nasal cannula on NECK: no jvd no cervical lymphadenopathy Heart: S1, S2 normal, no rub, murmur or gallop Lungs: diminished bilaterally, no ronchi or rales. Coarse breath sounds. Abdomen: Soft, nontender, nondistended. Positive bowel sounds. No rebound or guarding. no abdominal bruits Extremities: No cyanosis, clubbing. No pitting edema. Skin : no break, there are echymosis on the face as above. bruising on the chest wall. LABORATORY DATA,IMAGING STUDIES, MICROBIOLOGY: REVIEWED, PLS SEE BELOW ASSESSMENT AND PLAN: This is a 73-year-old with COPD, diabetes, CAD, reflux, hypercholesterolemia, sleep apnea, allergic rhinitis, chronic thrombocytopenia, fatty liver, memory loss, lung nodules, chronic right bundle branch block, Clostridium (C) difficile July 2018, presented with epistaxis after he had fallen due to orthostatic hypotension due to left vertebral artery occlusion. The patient has chronic intermittent lightheadedness and has been on chronic Plavix due to risk of stroke. The patient had a fall at home with a fracture sternum and nasal deviation and fracture. Acute hypoxic respiratory failure due to deviated septum from recent fall s/p septoplasty by ENT now resolved COPD exacerbation. Pulmonary fibrosis and interstitial lung disease still desaturates to 89% on 4 liters nasal cannula and on ambulation desaturates to low 80s needing 6 liters of oxygen. titrate o2 to >90%. may need oxygen temporarily. CXR: no edema. being treated with po prednisone will consult pulmonary Chronic obstructive pulmonary disease (COPD) exacerbation continue nebs, prednisone, levofloxacin, breo and incruse. Orthostatic hypotension though to be due to vertebral artery occlusion. midodrine 2.5 mg at 0800, 1200,1600 before the pt gets out of bed. Echo checked and without significant abnormalities that could contribute to orthostasis. will consult cardiology. Neurology follow up with Dr Aurora cortez for further evaluation for vertigo. OT/PT Left vertebral artery occlusion. At risk for stroke. resumed plavix 02/28/[address] Bhandari. continued on Lipitor. Hemorrhagic shock due to intractable epistaxis from nasal bone fracture. related to thrombocytopenia and being on plavix. Now resolved. Acute blood anemia secondary to epistaxis, resolved after blood transfusion. The patient had 3 units of red blood cell (RBC) transfused with hemoglobin increasing appropriately. Platelet count is still low but no active signs of bleeding. Sternal fracture and nasal bone fracture and right inferior orbital plate fracture from traumatic fall and presyncope cause of falls undetermined possibly orthostatic hypotension, gait instability Says once he starts walking with small baby steps still he cannot stop and continues to gain speed and then symptomatic care. Physical therapy Chronic Thrombocytopenia since 2009 ? chronic ITP / hypersplenism No transfusions unless platelet count is less than 50 for surgery. Plavix has been held due to recent active bleeding and blood loss anemia. resumed plavix after septoplasty without recurrent bleeding. No Lovenox or heparin, and hold the aspirin. Type 2 diabetes. On hypoglycemic protocol, long-term insulin, before food, nightly fingersticks, on Trulicity once a week. May consider Levemir if needed. SLEEP APNEA , ON CPAP AT AUTOTITRATE--+8 CM WATER I cannot use it now due to the nasal fracture. FATTY LIVER with h/o elevation of transaminases. now normal MEMORY LOSS HE HAD NORMAL B12/FOLATE LEVELS Had refused MRI in the past. Follow up PMD on donepezil, celexa LUNG NODULE THIS IS FOLLOWED BY THE FULL STACK PYTHON DEVELOPER. CORONARY ARTERY DISEASE No issues at this point. continue plavix. No ASA. GERD Continue PPI DISPOSITION: awaiting physical therapy clearance. may need oxygen at hospital discharge. VS,Fishbone, I+O VS, Fishbone, I+O Laboratory Tests 03/06/19 06:04 Red Blood Count 3.08 L, Mean Corpuscular Volume 101.0 H, Mean Corpuscular Hemoglobin 33.1 H, Mean Corpuscular Hemoglobin Concent 32.8, Red Cell Distribution Width 15.3 H, Calcium Level 8.3 L Vital Signs Date Time Temp Pulse Resp B/P (MAP) Pulse Ox O2 Delivery O2 Flow Rate FiO2 03/06/19 06:00 97.0 104 20 126/59 (81) 92 2.0 03/05/19 11:00 Nasal Cannula I&O- Last 24 Hours up to 6 AM 03/06/19 06:00 Intake Total 1544 ml Output Total 700 ml Balance 844 ml DEBORAH HOSKINS MD Mar 06, 2019 08:31
[2019-03-06] MEDS: PERCOCET 5MG/325MG TAB PO PRN (16:25)
[2019-03-06] MEDS: CLOPIDOGREL 75 MG TAB PO SCH (20:02)
[2019-03-06] MEDS: FAMOTIDINE 20 MG TAB PO SCH (20:03)
[2019-03-06] MEDS ORDERED: predniSONE 10 MG TAB PO SCH (21:00)
[2019-03-07] MEDS: LEVALBUTEROL 1.25 MG/0.5 ML CONCENTRATE NEB INH SCH ×6 (00:23→18:13)
[2019-03-07 06:00] VITALS: BP 124/82
[2019-03-07 06:14] LABS: HEMATOCRIT 30.8 % (42.0-52.0); HEMOGLOBIN 10.2 g/dl (13.5-17.5); MEAN CORPUSCULAR HEMOGLOBIN 32.8 pg (27.0-33.0); MEAN CORPUSCULAR HGB CONC 33.1 g/dl (32.0-36.5); RED BLOOD COUNT 3.11 10^6/uL (4.30-6.10); WHITE BLOOD COUNT 9.6 10^3/uL (4.0-10.0)
[2019-03-07 06:21] LABS: PLATELET COUNT, AUTOMATED 73 10^3/uL (150-450)
[2019-03-07 06:37] LABS: BLOOD UREA NITROGEN 20 MG/DL (7-18); CALCIUM LEVEL 8.3 MG/DL (8.8-10.2); CARBON DIOXIDE LEVEL 26 MEQ/L (21-32); CHLORIDE LEVEL 107 MEQ/L (98-107); CREATININE FOR GFR 0.81 MG/DL (0.70-1.30); GLOMERULAR FILTRATION RATE > 60.0 (>42); GLUCOSE, FASTING 159 MG/DL (70-100); POTASSIUM SERUM 4.3 MEQ/L (3.5-5.1); SODIUM LEVEL 140 MEQ/L (136-145)
[2019-03-07] MEDS: HumaLOG INSULIN (NovoLOG) PER UNIT SC SCH ×5 (07:30→21:00)
[2019-03-07] MEDS: INCRUSE ELLIPTA INH SCH (07:33)
[2019-03-07] MEDS: FLUTICASONE FUROATE INH SCH (07:33)
[2019-03-07] MEDS: VILANTEROL INH SCH (07:33)
[2019-03-07] MEDS: MIDODRINE 2.5 MG TAB PO SCH ×3 (09:15→16:05)
[2019-03-07] MEDS: DOCUSATE SODIUM 100 MG CAP PO SCH ×2 (09:16→21:06)
[2019-03-07] MEDS: CitaloPRAM (CeleXA) 20 MG TAB PO SCH (09:16)
[2019-03-07] MEDS: DONEPEZIL 5 MG TAB PO SCH (09:17)
[2019-03-07] MEDS: predniSONE 10 MG TAB PO SCH (09:17)
[2019-03-07] MEDS: ATORVASTATIN 20 MG TAB PO SCH (09:17)
[2019-03-07] MEDS: POTASSIUM CHLORIDE 10 MEQ SR TABLET PO SCH (09:17)
[2019-03-07 09:21] VITALS: BP_SYST 100; BP_SYST 125; BP_SYST 93; BP_DIAS 59; BP_DIAS 61
[2019-03-07 13:18] VITALS: O2SAT 92
[2019-03-07 14:00] VITALS: BP 131/75
--- NOTE | 2019-03-07 15:11 | IPNPDOC ---
Text Note Date of Service The patient was seen on 03/07/19. NOTE SUBJECTIVE: still desaturates with ambulation, needing 4 liters to 6 liters o2. On 1 liter at rest. No recurrent epistaxis. Denies any SOB but clinically on ambulation he is becoming dyspnic and needing increased oxygen. He was again lightheaded and dizzy this am. OBJECTIVE: Vital signs: pls see below General: AAOx3 on o2 nasal cannula HEENT: Trauma of the nasal bone, ecchymosis around the eyes. nasal bandages. no conversational dyspnea. nasal cannula on NECK: no jvd no cervical lymphadenopathy Heart: S1, S2 normal, no rub, murmur or gallop Lungs: diminished bilaterally, no ronchi or rales. Coarse breath sounds. Abdomen: Soft, nontender, nondistended. Positive bowel sounds. No rebound or guarding. no abdominal bruits Extremities: No cyanosis, clubbing. No pitting edema. Skin : no break, there are echymosis on the face as above. bruising on the chest wall. LABORATORY DATA,IMAGING STUDIES, MICROBIOLOGY: REVIEWED, PLS SEE BELOW ASSESSMENT AND PLAN: This is a 73-year-old with COPD, diabetes, CAD, reflux, hypercholesterolemia, sleep apnea, allergic rhinitis, chronic thrombocytopenia, fatty liver, memory loss, lung nodules, chronic right bundle branch block, Clostridium (C) difficile July 2018, presented with epistaxis after he had fallen due to orthostatic hypotension due to left vertebral artery occlusion. The patient has chronic intermittent lightheadedness and has been on chronic Plavix due to risk of stroke. The patient had a fall at home with a fracture sternum and nasal deviation and fracture. Acute hypoxic respiratory failure due to deviated septum from recent fall s/p septoplasty by ENT now resolved COPD exacerbation. Pulmonary fibrosis and interstitial lung disease still desaturates to 89% on 4 liters nasal cannula and on ambulation desaturates to low 80s needing 6 liters of oxygen. titrate o2 to >90%. may need oxygen temporarily. CXR: no edema. being treated with po prednisone will consult pulmonary Chronic obstructive pulmonary disease (COPD) exacerbation continue nebs, prednisone, levofloxacin, breo and incruse. Orthostatic hypotension though to be due to vertebral artery occlusion. midodrine 2.5 mg at 0800, 1200,1600 before the pt gets out of bed. Echo checked and without significant abnormalities that could contribute to orthostasis. will consult cardiology. Neurology follow up with Dr Aurora cortez for further evaluation for vertigo. OT/PT Left vertebral artery occlusion. At risk for stroke. resumed plavix 02/28/[address] Bhandari. continued on Lipitor. Hemorrhagic shock due to intractable epistaxis from nasal bone fracture. related to thrombocytopenia and being on plavix. Now resolved. Acute blood anemia secondary to epistaxis, resolved after blood transfusion. The patient had 3 units of red blood cell (RBC) transfused with hemoglobin increasing appropriately. Platelet count is still low but no active signs of bleeding. Sternal fracture and nasal bone fracture and right inferior orbital plate fracture from traumatic fall and presyncope cause of falls undetermined possibly orthostatic hypotension, gait instability Says once he starts walking with small baby steps still he cannot stop and continues to gain speed and then symptomatic care. Physical therapy Chronic Thrombocytopenia since 2009 ? chronic ITP / hypersplenism No transfusions unless platelet count is less than 50 for surgery. Plavix has been held due to recent active bleeding and blood loss anemia. resumed plavix after septoplasty without recurrent bleeding. No Lovenox or heparin, and hold the aspirin. Type 2 diabetes. On hypoglycemic protocol, long-term insulin, before food, nightly fingersticks, on Trulicity once a week. May consider Levemir if needed. SLEEP APNEA , ON CPAP AT AUTOTITRATE--+8 CM WATER I cannot use it now due to the nasal fracture. FATTY LIVER with h/o elevation of transaminases. now normal MEMORY LOSS HE HAD NORMAL B12/FOLATE LEVELS Had refused MRI in the past. Follow up PMD on donepezil, celexa LUNG NODULE THIS IS FOLLOWED BY THE SEAPORT PLANNING MANAGER. CORONARY ARTERY DISEASE No issues at this point. continue plavix. No ASA. GERD Continue PPI DISPOSITION: awaiting physical therapy clearance. may need oxygen at hospital discharge. VS,Fishbone, I+O VS, Fishbone, I+O Laboratory Tests 03/07/19 05:32 Red Blood Count 3.11 L, Mean Corpuscular Volume 99.0 H, Mean Corpuscular Hemoglobin 32.8, Mean Corpuscular Hemoglobin Concent 33.1, Red Cell Distribution Width 15.3 H, Calcium Level 8.3 L Vital Signs Date Time Temp Pulse Resp B/P (MAP) Pulse Ox O2 Delivery O2 Flow Rate FiO2 03/07/19 14:00 97.6 102 19 131/75 (93) 91 1.0 03/07/19 13:18 Nasal Cannula I&O- Last 24 Hours up to 6 AM 03/07/19 06:00 Intake Total 1498 ml Output Total 1375 ml Balance 123 ml DEBORAH HOSKINS MD Mar 07, 2019 15:10
[2019-03-07] MEDS: FAMOTIDINE 20 MG TAB PO SCH (21:06)
[2019-03-07] MEDS: CLOPIDOGREL 75 MG TAB PO SCH (21:06)
[2019-03-07 22:00] VITALS: BP 129/72
[2019-03-07 22:45] VITALS: O2SAT 93
[2019-03-07] MEDS: ACETAMINOPHEN TAB 650MG DOSE (2X325MG) PO PRN (23:50)
[2019-03-08] MEDS: LEVALBUTEROL 1.25 MG/0.5 ML CONCENTRATE NEB INH SCH ×7 (00:12→23:59)
[2019-03-08 02:50] VITALS: O2SAT 94
[2019-03-08 06:00] VITALS: BP 130/67
[2019-03-08 06:29] LABS: HEMOGLOBIN 10.4 g/dl (13.5-17.5); MEAN CORPUSCULAR HEMOGLOBIN 32.7 pg (27.0-33.0); MEAN CORPUSCULAR HGB CONC 32.5 g/dl (32.0-36.5); MEAN CORPUSCULAR VOLUME 100.6 fl (80.0-96.0); RED BLOOD COUNT 3.18 10^6/uL (4.30-6.10); WHITE BLOOD COUNT 8.9 10^3/uL (4.0-10.0)
[2019-03-08 06:34] LABS: PLATELET COUNT, AUTOMATED 77 10^3/uL (150-450)
[2019-03-08 06:50] LABS: BLOOD UREA NITROGEN 19 MG/DL (7-18); CARBON DIOXIDE LEVEL 27 MEQ/L (21-32); CHLORIDE LEVEL 108 MEQ/L (98-107); CREATININE FOR GFR 0.78 MG/DL (0.70-1.30); GLOMERULAR FILTRATION RATE > 60.0 (>42); GLUCOSE, FASTING 107 MG/DL (70-100); POTASSIUM SERUM 3.6 MEQ/L (3.5-5.1); SODIUM LEVEL 140 MEQ/L (136-145)
[2019-03-08 07:18] VITALS: BP_SYST 108; BP_SYST 137; BP_SYST 140; BP_DIAS 64; BP_DIAS 84
[2019-03-08] MEDS: HumaLOG INSULIN (NovoLOG) PER UNIT SC SCH ×4 (07:30→21:00)
[2019-03-08] MEDS: FLUTICASONE FUROATE INH SCH (07:37)
[2019-03-08] MEDS: INCRUSE ELLIPTA INH SCH (07:37)
[2019-03-08] MEDS: VILANTEROL INH SCH (07:37)
[2019-03-08] MEDS: ATORVASTATIN 20 MG TAB PO SCH (07:41)
[2019-03-08] MEDS: MIDODRINE 5 MG TAB PO SCH ×3 (07:41→17:08)
[2019-03-08] MEDS: DOCUSATE SODIUM 100 MG CAP PO SCH ×3 (07:42→21:35)
[2019-03-08] MEDS: CitaloPRAM (CeleXA) 20 MG TAB PO SCH (07:42)
[2019-03-08] MEDS: predniSONE 10 MG TAB PO SCH (07:42)
[2019-03-08] MEDS: POTASSIUM CHLORIDE 10 MEQ SR TABLET PO SCH (07:42)
[2019-03-08] MEDS: DONEPEZIL 5 MG TAB PO SCH (07:42)
[2019-03-08 14:00] VITALS: BP 120/68
--- NOTE | 2019-03-08 14:05 | IPNPDOC ---
Text Note Date of Service The patient was seen on 03/08/19. NOTE SUBJECTIVE: still desaturates with ambulation, needing 4 liters to 6 liters o2. On 1 liter at rest. No recurrent epistaxis. Denies any SOB but clinically on ambulation he is becoming dyspnic and needing increased oxygen. No light headedness or dizziness. OBJECTIVE: Vital signs: pls see below General: AAOx3 on o2 nasal cannula HEENT: Trauma of the nasal bone, ecchymosis around the eyes. nasal bandages. no conversational dyspnea. nasal cannula on NECK: no jvd no cervical lymphadenopathy Heart: S1, S2 normal, no rub, murmur or gallop Lungs: diminished bilaterally, no ronchi or rales. Coarse breath sounds. Abdomen: Soft, nontender, nondistended. Positive bowel sounds. No rebound or guarding. no abdominal bruits Extremities: No cyanosis, clubbing. No pitting edema. Skin : no break, there are echymosis on the face as above. bruising on the chest wall. LABORATORY DATA,IMAGING STUDIES, MICROBIOLOGY: REVIEWED, PLS SEE BELOW ASSESSMENT AND PLAN: This is a 73-year-old with COPD, diabetes, CAD, reflux, hypercholesterolemia, sleep apnea, allergic rhinitis, chronic thrombocytopenia, fatty liver, memory loss, lung nodules, chronic right bundle branch block, Clostridium (C) difficile July 2018, presented with epistaxis after he had fallen due to orthostatic hypotension due to left vertebral artery occlusion. The patient has chronic intermittent lightheadedness and has been on chronic Plavix due to risk of stroke. The patient had a fall at home with a fracture sternum and nasal deviation and fracture. Acute hypoxic respiratory failure Due to progressing pulmonary fibrosis and interstitial lung disease. , copd exacerbation and due to deviated septum from recent fall s/p septoplasty by ENT now resolved Seen by pulmonary his main cause for hypoxia is his significant pulmonary fibrosis which was severe even as early as 2015 though he was not symptomatic then. will continue to taper prednisone will need oxygen on discharge. Chronic obstructive pulmonary disease (COPD) exacerbation His baseline COPD from PFTs from Dr Leyva is mild. continue nebs, prednisone, levofloxacin, breo and incruse. Orthostatic hypotension thought to be due to vertebral artery occlusion. seen by Dr Renee. midodrine increased to 5 mg tid. Echo checked and without significant abnormalities that could contribute to orthostasis. Neurology follow up with Dr Aurora hernandez outpt for further evaluation OT/PT Left vertebral artery occlusion. At risk for stroke. resumed plavix 02/28/[address] Bhandari. continued on Lipitor. Hemorrhagic shock due to intractable epistaxis from nasal bone fracture. related to thrombocytopenia and being on plavix. Now resolved. Acute blood anemia secondary to epistaxis, resolved after blood transfusion. The patient had 3 units of red blood cell (RBC) transfused with hemoglobin increasing appropriately. Platelet count is still low but no active signs of bleeding. Sternal fracture and nasal bone fracture and right inferior orbital plate fracture from traumatic fall and presyncope cause of falls undetermined possibly orthostatic hypotension, gait instability Says once he starts walking with small baby steps still he cannot stop and continues to gain speed and then loose balance and fall, symptomatic care. Physical therapy Chronic Thrombocytopenia since 2009 ? chronic ITP / hypersplenism No transfusions unless platelet count is less than 50 for surgery. Plavix has been held due to recent active bleeding and blood loss anemia. resumed plavix after septoplasty without recurrent bleeding. No Lovenox or heparin, and hold the aspirin. Type 2 diabetes. On hypoglycemic protocol, long-term insulin, before food, nightly fingersticks, on Trulicity once a week. May consider Levemir if needed. SLEEP APNEA , ON CPAP AT AUTOTITRATE--+8 CM WATER I FATTY LIVER with h/o elevation of transaminases. now normal MEMORY LOSS --Dementia HE HAD NORMAL B12/FOLATE LEVELS Had refused MRI in the past. Follow up PMD on donepezil, celexa LUNG NODULE THIS IS FOLLOWED BY THE FRAMING INSPECTOR. CORONARY ARTERY DISEASE No issues at this point. continue plavix. No ASA. GERD Continue PPI DISPOSITION: in 24 hours with home oxygen. patient continues to desaturate during PT even at 25 ft ambulation with 2 L . Will try today with more oxygen supplementation. VS,Fishbone, I+O VS, Fishbone, I+O Laboratory Tests 03/08/19 05:54 Red Blood Count 3.18 L, Mean Corpuscular Volume 100.6 H, Mean Corpuscular Hemoglobin 32.7, Mean Corpuscular Hemoglobin Concent 32.5, Red Cell Distribution Width 15.1 H, Calcium Level 8.0 L Vital Signs Date Time Temp Pulse Resp B/P (MAP) Pulse Ox O2 Delivery O2 Flow Rate FiO2 03/08/19 07:49 1.0 03/08/19 07:18 95 140/84 (102) 103 137/84 (101) 119 108/64 (79) 03/08/19 06:00 97.0 20 93 03/08/19 02:50 Nasal Cannula I&O- Last 24 Hours up to 6 AM 03/08/19 06:00 Intake Total 1470 ml Output Total 1225 ml Balance 245 ml DEBORAH HOSKINS MD Mar 08, 2019 14:05
[2019-03-08 21:30] VITALS: O2SAT 93
[2019-03-08] MEDS: FAMOTIDINE 20 MG TAB PO SCH (21:35)
[2019-03-08] MEDS: CLOPIDOGREL 75 MG TAB PO SCH (21:35)
[2019-03-08 22:00] VITALS: BP 128/78
--- NOTE | 2019-03-08 22:36 | CR ---
DATE OF CONSULTATION: 03/08/2019 REASON FOR PULMONARY CONSULTATION: Pulmonary team was consulted due to patient experiencing dyspnea on ambulation with oxygen desaturation. HISTORY OF THE PRESENT ILLNESS: Star is a 73-year-old male who has been an inpatient at [facility] since 02/25/2019 with the chief complaint of symptomatic orthostatic hypotension. He presented to the emergency department (ED) on 02/25/2019 after a syncopal event on 02/19/2019, which involved a fall, landing on his face and left arm resulting in nasal fracture and sternum fracture. He had nasal fracture repair surgery on 02/27/[address] Bhandari. The patient's resting oxygen saturation has been in the upper 80s on 4L NC for most of admission. When patient ambulates, his oxygen saturation usually desaturates into the low 80s, requiring increase in oxygen supplementation of 6L NC. At the time of consultation visit, the patient was at rest on 1L NC with 93% oxygen saturation. On most recent ambulation, nursing staff reports his supplemental O2 requirement was decreased to 4L NC. The patient states that his breathing has been "terrible" for the last 6 months. He has been getting short of breath easily. When asked how far he can walk under normal conditions on a flat surface before having to stop due to sob, he responds he can go approximately 100 feet. He says that 1 year ago at this time his answer to this question would also be about 100 feet before needing to stop. He states that he can get up one flight of stairs without having to stop, but if asked to walk two flights of stairs, is almost certain that he would need to stop due to shortness of breath. He denies any recent travel. He does not have any pets. He complains of an associated productive cough with clear sputum. He has not had any recent illnesses or colds within the past year. In terms of new medications within the last year, he has been taking K+ supplementation overseen by cardiology, Aricept, and Plavix. He also had his Lopressor medication stopped within the last year. Currently as inpatient, he is taking Xopenex nebulizer 0.63mg q4h and has a 1.25 mg Xopenex nebulizer qhour prn for shortness of breath. He is also taking his home dosage of Breo and home dosage of Incruse inhalers. The patient follows with Dr. Leyva for outpatient pulmonary care and has done so for many years PAST MEDICAL HISTORY: COPD, GOLD classification I GIRISH Former smoker (quit greater than 15 years ago). Lung nodule, which is being followed by pulmonology. Diabetes mellitus, type 2 with hyperglycemia on long-term current use of insulin. CAD GERD Hypercholesterolemia. Allergic rhinitis. Chronic thrombocytopenia. Fatty liver. Memory loss. Chronic right bundle branch block. Left vertebral artery occlusion, being followed by Dr. Simon. Clostridium difficile enterocolitis, 07/2018 (resolved). SURGICAL HISTORY: Nasal fracture repair, 02/27/2019. Tonsillectomy, age 20. Right carpal tunnel release. Attempted stent placement, RCA 1995. Right eye cataract extraction with lens implantation, 08/2011. Left eye cataract extraction with lens implantation, 09/2012. Colonoscopy, 10/2011. L3-S1 decompression with L4-L5 in situ fusion with local fusion, 10/2012. FAMILY HISTORY: [place] (father, multiple MIs with first at age 74). CVA, CHF, and CAD (mother). 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 Lives with his . Former smoker who quit in 1999. No alcohol use. SCHEDULED HOME RESPIRATORY MEDICATIONS: - Breo Ellipta 200-25 mcg inhaler, one puff daily - Incruse Ellipta 62.5 mcg per inhalation, one puff daily SCHEDULED HOME RESPIRATORY PRN MEDICATIONS: - albuterol sulfate 2.5 mg per 3 mL vial, inhaler q4h sob - Ventolin HFA 108 mcg, two puffs by inhaler daily sob ALLERGIES: No known allergies. PHYSICAL EXAM: GENERAL: The patient is a very pleasant and interactive elderly man who appears his stated age. He is resting upright in bed at time of examination. He is awake, A&O x3. He responds to questions appropriately. He appears well nourished. He displays appropriate mood and appropriate affect. He is wearing 1L supplemental O2 NC. He does not appear to be in any acute respiratory distress. VITAL SIGNS: Temperature 97 (T-max 97.6), heart rate 85, respiratory rate 20, blood pressure 130/67 (MAP 88), oxygen (O2) saturation 93% on 1L NC HEENT: Normocephalic, atraumatic. Anicteric, noninjected sclerae. Extraocular motion intact. Pupils are equal, round and reactive to light and accommodation. There is dried crusted blood in bilateral nares with no evidence of active discharge or bleeding. Mucous membranes are pink and moist. There appears to be scant mucous on the posterior pharynx with no pharyngeal erythema or swelling. NECK: Neck is supple with trachea midline. There is no palpable cervical or supraclavicular lymphadenopathy. CARDIOVASCULAR: Regular rate and rhythm. S1, S2 auscultated with slightly louder/increased S1 more predominantly at left 2nd ICS along parasternal border. No rubs, gallops, or murmurs appreciated. PULMONARY: There are velcro inspiratory crackles heard most prominently in lung bases bilaterally.There is symmetric excursion. Breath sounds are moderately coarse. There is no accessory muscle use with respiration. There are no retractions visible with respiration. Patient complains of sternal pain on both inspiration and expiration. ABDOMEN: Soft, nontender, nondistended. No rebound, guarding, or rigidity. Normoactive bowel sounds present. No organomegaly palpated. EXTREMITIES: 2+ carotid and posterior tibial pulses palpated bilaterally. There is no lower extremity swelling or edema. Patient is able to move all four extremities on command. NEUROLOGIC: Patient is awake, A&O x3. He is interactive and responds appropriately to commands and questions. Sensation to light touch is intact in upper extremities and lower extremities bilaterally. LABORATORY: CBC - white blood cell count 8.9, hemoglobin 10.4, hematocrit 32.0, platelet count 77. Chemistry - sodium 140, potassium 3.6, chloride 108, carbon dioxide 27, BUN 19, creatinine 0.78, GFR greater than 60%, fasting glucose 107 and calcium 8.0. IMAGING: The patient had portable chest x-rays administered on 02/25/2019 and 03/03/2019. These were read as likely showing picture of interstitial lung disease, specifically chronic stable interstitial changes and fibrosis with no obvious acute process. We reviewed the scans and agree with the reads. ASSESSMENT: 1. Hypoxemia, worse with ambulation that is likely secondary to interstitial lung disease. 2. Abnormal CT of chest. Comparison from 02/19/[address] versus 03/27/[address] showed evidence of fibrosis and bronchiectasis that appears to have progressed in the interim, specifically in the lung bases. The left upper lung looks about the same, and there is a new band in the right apex. The overall picture in general looks to be one of progressing fibrosis. 3. Bronchiectasis. This diagnosis has been known and followed for some time as an outpatient. Recent CT evidence shows possible progression. 4. Chronic obstructive pulmonary disease, Gold classification I. Most recent spirometry (10/04/2018) FEV1 actual 2.20, predicted 3.13, 70% predicted. FVC 2.64 actual, 4.30 predicted, 61% predicted. FEV1 to FVC ratio 83 actual, 73 predicted, 114% predicted. Spirometry was read as FVC diminished and FEV1 diminished. The FEV1 to FVC ratio was maintained, and there was a nonspecific flow rate reduction. Most recent lung volumes (04/01/2016) TLC 4.33 actual, 7.03 predicted, 61% predicted. RV 1.50 actual, 2.47 predicted, 60% predicted. RV to TLC ratio: 35 actual, 36 predicted, 96% predicted. Most recent diffusion analysis (04/01/2016) DLCO corrected 12.74 actual, 25.97 predicted, 49% predicted, this indicates a moderate reduction in correct DLCO. 5. Obstructive sleep apnea. Patient is compliant with nightly home continuous positive airway pressure (CPAP) per outpatient records. 6. Symptomatic orthostatic hypotension. The patient is being evaluated by cardiology. RECOMMENDATIONS: -In regards to supplemental oxygen, he likely needs 0 to one liter ate rest and that needs to be assessed. The need for supplemental oxygen has not been assessed by nocturnal and/or ambulatory means as outpatient, therefore, it is difficult to assess if and how much supplemental oxygen is required. We will defer to the primary team's assessment if they feel patient needs to be discharged on oxygen. -Patient follows with Dr. Leyva for outpatient pulmonary care, and Dr. Leyva can reassess for continued need of supplemental oxygen. -Patient's oral prednisone was stopped because he is not suffering from an underlying inflammatory respiratory condition. -Continue with administration of patient's respiratory home COPD medications as inpatient ([facility] Levin) -It is not known yet the specificity of patient's interstitial fibrotic lung disease. At this time, top differential diagnoses are usual interstitial pneumonia (UIP) vs. nonspecific interstitial pneumonia (NSIP) vs. Other. These most likely require long-term treatment diagnoses and are not quickly, if at all, correctable. Due to the time course and treatment options for most likely diagnoses, coupled with the fact patient has followed with Dr. Leyva for years, we will defer to Dr. Leyva for further evaluation. -Patient's next followup pulmonary outpatient appointment with Dr. Leyva is scheduled for 05/02/2019 at 9:00 a.m. Thank you for consulting the pulmonary team as it pertains to the care of Mr. Dwyer. The pulmonary team will sign off following Mr. Dwyer for now. Please contact the pulmonary team if further respiratory questions or concerns may arise regarding Mr. Dwyer. ADDENDUM: I, Dr. Andie Dawson, independently performed a history and pysical examination and agree with the documentation. I discussed the assessment and plan wiht the resident and agree with the above documentation. SARAH
[2019-03-09] MEDS: LEVALBUTEROL 1.25 MG/0.5 ML CONCENTRATE NEB INH SCH ×4 (03:35→15:01)
[2019-03-09 06:00] VITALS: BP 133/76
[2019-03-09 07:11] LABS: HEMATOCRIT 33.1 % (42.0-52.0); HEMOGLOBIN 10.8 g/dl (13.5-17.5); MEAN CORPUSCULAR HEMOGLOBIN 32.1 pg (27.0-33.0); MEAN CORPUSCULAR HGB CONC 32.6 g/dl (32.0-36.5); MEAN CORPUSCULAR VOLUME 98.5 fl (80.0-96.0); RED BLOOD COUNT 3.36 10^6/uL (4.30-6.10); WHITE BLOOD COUNT 9.4 10^3/uL (4.0-10.0)
[2019-03-09 07:17] LABS: PLATELET COUNT, AUTOMATED 81 10^3/uL (150-450)
[2019-03-09] MEDS: FLUTICASONE FUROATE INH SCH (07:29)
[2019-03-09] MEDS: INCRUSE ELLIPTA INH SCH (07:29)
[2019-03-09] MEDS: VILANTEROL INH SCH (07:29)
[2019-03-09] MEDS: HumaLOG INSULIN (NovoLOG) PER UNIT SC SCH ×2 (07:30→12:00)
[2019-03-09 08:53] LABS: BLOOD UREA NITROGEN 22 MG/DL (7-18); CALCIUM LEVEL 8.2 MG/DL (8.8-10.2); CARBON DIOXIDE LEVEL 25 MEQ/L (21-32); CHLORIDE LEVEL 109 MEQ/L (98-107); CREATININE FOR GFR 0.73 MG/DL (0.70-1.30); GLOMERULAR FILTRATION RATE > 60.0 (>42); GLUCOSE, FASTING 94 MG/DL (70-100); POTASSIUM SERUM 3.6 MEQ/L (3.5-5.1); SODIUM LEVEL 142 MEQ/L (136-145)
[2019-03-09 09:00] VITALS: BP_SYST 110; BP_SYST 128; BP_SYST 84; BP_DIAS 42; BP_DIAS 68; BP_DIAS 75; O2SAT 94
[2019-03-09] MEDS: DOCUSATE SODIUM 100 MG CAP PO SCH (09:00)
[2019-03-09] MEDS: ATORVASTATIN 20 MG TAB PO SCH (09:07)
[2019-03-09] MEDS: MIDODRINE 5 MG TAB PO SCH ×3 (09:07→16:05)
[2019-03-09] MEDS: POTASSIUM CHLORIDE 10 MEQ SR TABLET PO SCH (09:07)
[2019-03-09] MEDS: CitaloPRAM (CeleXA) 20 MG TAB PO SCH (09:07)
[2019-03-09] MEDS: DONEPEZIL 5 MG TAB PO SCH (09:07)
[2019-03-09] MEDS: PERCOCET 5MG/325MG TAB PO PRN (09:20)
[2019-03-09] MEDS ORDERED: DOCU100T8 PO (10:30)
[2019-03-09] MEDS ORDERED: MIDO5TA PO (10:30)
[2019-03-09 12:18] VITALS: O2SAT 86
[2019-03-09 12:19] VITALS: O2SAT 90
[2019-03-09] MEDS ORDERED: PRED10TA2 PO (12:32)
--- NOTE | 2019-03-09 12:44 | DS.PDOC ---
Discharge Summary General Date of Admission Feb 25, 2019 at 18:52 Date of Discharge 03/09/19 Discharge Summary PROCEDURES PERFORMED DURING STAY: Nasal cautery. Septoplasty. Nasal infracture on 02/27/19 DISCHARGE DIAGNOSES: Hemorrhagic shock due to intractable epistaxis Acute blood loss anemia Acute respiratory failure with hypoxia Severe Pulmonary fibrosis and interstitial lung disease Mild COPD Orthostatic hypotension Left vertebral artery occlusion Sternal fracture and nasal bone fracture after fall Nasal septoplasty on 02/27/19 Chronic thombocytopenia ? chronic ITP Diabetes CAD Dementia Fatty liver Lung nodule GIRISH on CPAP GERD COMPLICATIONS/CHIEF COMPLAINT: Orthostatic Hypotension. HISTORY OF PRESENT ILLNESS: See history and physical HOSPITAL COURSE: This is a 73-year-old with COPD, diabetes, CAD, reflux, hypercholesterolemia, sleep apnea, allergic rhinitis, chronic thrombocytopenia, fatty liver, memory loss, lung nodules, chronic right bundle branch block, Clostridium (C) difficile July 2018, presented with epistaxis after he had fallen due to orthostatic hypotension due to left vertebral artery occlusion. The patient has chronic intermittent lightheadedness and has been on chronic Plavix due to risk of stroke. The patient had a fell at home with a fracture sternum and nasal deviation and fracture. He started having intractable epistaxis so came to the ED and was admitted. During hospitalization pateint was noted to have severe hypoxia initially it was felt to be due to his nasal fracture and his intractable epistaxis. however his nasal fracture was fixed by ENT and epitaxis stopped he still continued to have severe hypoxia with desaturations to mid 70 with ambulation with 2 liters oxyten. Pulmonology was consulted. He was also noted to have significant orthostatic hypotensionwith symptoms so cardilogy was consulted. Hemorrhagic shock due to intractable epistaxis from nasal bone fracture. related to thrombocytopenia and being on plavix. Now resolved. Acute blood loss anemia secondary to epistaxis, resolved after blood transfusion. The patient had 3 units of red blood cell (RBC) transfused with hemoglobin increasing appropriately. Platelet count is still low but no active signs of bleeding. Acute hypoxic respiratory failure Due to progressing pulmonary fibrosis and interstitial lung disease. , copd exacerbation and due to deviated septum from recent fall s/p septoplasty by ENT now resolved Seen by pulmonary his main cause for hypoxia is his significant pulmonary fibrosis which was severe even as early as 2015 though he was not symptomatic then. will continue to taper prednisone will need oxygen on discharge. Chronic obstructive pulmonary disease (COPD) exacerbation His baseline COPD from PFTs from Dr Leyva is mild. continue nebs, prednisone taper, breo and incruse. Orthostatic hypotension thought to be due to vertebral artery occlusion. seen by Dr Renee. midodrine increased to 5 mg tid. Echo checked and without significant abnormalities that could contribute to orthostasis. Neurology follow up with Dr Aurora hernandez outpt for further evaluation OT/PT Left vertebral artery occlusion. At risk for stroke. resumed plavix 02/28/[address] Bhandari. continued on Lipitor. Sternal fracture and nasal bone fracture and right inferior orbital plate fracture from traumatic fall and presyncope cause of falls undetermined possibly orthostatic hypotension, gait instability Says once he starts walking with small baby steps still he cannot stop and continues to gain speed and then loose balance and fall, symptomatic care. Chronic Thrombocytopenia since 2009 ? chronic ITP / hypersplenism No transfusions unless platelet count is less than 50 for surgery. Plavix has been held due to recent active bleeding and blood loss anemia. resumed plavix after septoplasty without recurrent bleeding. Type 2 diabetes. nightly fingersticks, on Trulicity once a week. SLEEP APNEA , ON CPAP AT AUTOTITRATE--+8 CM WATER I FATTY LIVER with h/o elevation of transaminases. now normal MEMORY LOSS --Dementia HE HAD NORMAL B12/FOLATE LEVELS Had refused MRI in the past. Follow up PMD on donepezil, celexa LUNG NODULE THIS IS FOLLOWED BY THE NETSUITE CONSULTANT. CORONARY ARTERY DISEASE No issues at this point. continue plavix. No ASA. GERD Continue PPI DISCHARGE MEDICATIONS: Please see below. ALLERGIES: Please see below. PHYSICAL EXAMINATION ON DISCHARGE: VITAL SIGNS: Please see below. GENERAL: AAOx3 on o2 nasal cannula HEENT: Trauma of the nasal bone, ecchymosis around the eyes. nasal bandages. no conversational dyspnea. nasal cannula on NECK: no jvd no cervical lymphadenopathy Heart: S1, S2 normal, no rub, murmur or gallop Lungs: diminished bilaterally, no ronchi or rales. Coarse breath sounds. Abdomen: Soft, nontender, nondistended. Positive bowel sounds. No rebound or guarding. no abdominal bruits Extremities: No cyanosis, clubbing. No pitting edema. Skin : no break, there are echymosis on the face as above. bruising on the chest wall. LABORATORY DATA: Please see below. ACTIVITY: [As tolerated]. DIET: As tolerated DISCHARGE PLAN: Home DISPOSITION: . DISCHARGE INSTRUCTIONS: PMD in [address] Renee in [address] Leyva in 6 to 8 weeks DISCHARGE CONDITION: [Stable]. TIME SPENT ON DISCHARGE: 35 minutes. Vital Signs/I&Os Vital Signs Date Time Temp Pulse Resp B/P (MAP) Pulse Ox O2 Delivery O2 Flow Rate FiO2 03/09/19 12:19 90 Nasal Cannula 1.0 03/09/19 09:50 16 03/09/19 09:00 104 128/75 (92) 114 110/68 (82) 121 84/42 (56) 03/09/19 06:00 97.8 I&O- Last 24 Hours up to 6 AM 03/09/19 06:00 Intake Total 1136 ml Output Total 1030 ml Balance 106 ml Laboratory Data Labs 24H Laboratory Tests 2 03/08/19 16:47: Bedside Glucose (Misc Panel) 194H 03/08/19 20:17: Bedside Glucose (Misc Panel) 201H 03/09/19 06:07: Nucleated Red Blood Cells % (auto) 0.0, Immature Platelet Fraction 7.8, Anion Gap 8, Glomerular Filtration Rate > 60.0, Blood Urea Nitrogen 22H, Creatinine 0.73, Sodium Level 142, Potassium Level 3.6, Chloride Level 109H, Carbon Dioxide Level 25, Calcium Level 8.2L 03/09/19 12:06: Bedside Glucose (Misc Panel) 104 CBC/BMP Laboratory Tests 03/09/19 06:07 Red Blood Count 3.36 L, Mean Corpuscular Volume 98.5 H, Mean Corpuscular Hemoglobin 32.1, Mean Corpuscular Hemoglobin Concent 32.6, Red Cell Distribution Width 15.0 H, Calcium Level 8.2 L FSBS Laboratory Tests Test 03/08/19 16:47 03/08/19 20:17 03/09/19 12:06 Range/Units Bedside Glucose (Misc Panel) 194 201 104 83-110 MG/DL Discharge Medications Scheduled Atorvastatin Calcium (Atorvastatin Calcium) 40 Mg Tablet, 40 MG PO DAILY, (Reported) Citalopram Hydrobromide (Citalopram HBr) 20 Mg Tab, 20 MG PO DAILY, (Reported) Clopidogrel Bisulfate (Clopidogrel) 75 Mg Tab, 75 MG PO QHS, (Reported) PT TO HOLD FOR SURGERY Docusate Sodium (Docusate Sodium) 100 Mg Tablet, 1 TAB PO BID Donepezil HCl (Aricept) 10 Mg Tab, 5 MG PO DAILY, (Reported) Dulaglutide (Trulicity) 1.5 Mg/0.5 Ml Inj, 1.5 MG SC QWEEK, (Reported) TUESDAY Fluticasone/Vilanterol (Breo Ellipta 200-25 Mcg INH) 1 Inh Inh, 1 PUFF INH DAILY, (Reported) Midodrine HCl (Midodrine HCl) 5 Mg Tablet, 5 MG PO 08,12,16 Potassium Chloride (Potassium Chloride) 10 Meq Capsule.er, 10 MEQ PO DAILY, (Reported) Ranitidine HCl (Zantac) 300 Mg Tab, 1 TAB PO QHS, (Reported) Umeclidinium [place] (Incruse Ellipta) 62.5 Mcg/Inh Inh, 1 PUFF INH DAILY, (Reported) Scheduled PRN Albuterol Sulf (Albuterol Sulfate) 2.5 Mg/3 Ml Vial.neb, 2.5 MG INH Q4H PRN for SHORTNESS OF BREATH, (Reported) Albuterol Sulfate (Ventolin Hfa) 108 Mcg/Act Aer, 2 PUFF INH QID PRN for SHORTNESS OF BREATH, (Reported) Nitroglycerin (Nitrostat) 0.4 Mg Tab.subl, 0.4 MG SL NITRO PRN for CHEST PAIN, (Reported) Oxycodone HCl/Acetaminophen (Percocet 5-325 mg Tablet) 1 Each Tablet, 1 TAB PO Q4HP PRN for PAIN Allergies Coded Allergies: No Known Allergies (Unverified , 02/23/19) DEBORAH HOSKINS MD Mar 09, 2019 12:44
[2019-03-09 14:00] VITALS: BP 122/68
== END 2019-03-09 16:14 | disposition home health service (06) | DRG 853 ==
LOC: M ED 05:46 → M ED INP 05:47 → M MSPAV 13:14 → OBSVTOIN 18:52
PROVIDERS: ADMIT Family Medicine; ATTEND Internal Medicine Nephrology
PROC: 30233N1 Transfusion of Nonautologous Red Blood Cells into Peripheral Vein, Percutaneous Approach (ICD-10-PCS; 2019-02-26)
PROC: 0NSBXZZ Reposition Nasal Bone, External Approach (ICD-10-PCS; 2019-02-27)
PROC: 093K7ZZ Control Bleeding in Nasal Mucosa and Soft Tissue, Via Natural or Artificial Opening (ICD-10-PCS; 2019-02-27)
PROC: 0NB Head and Facial Bones, Excision (ICD-10-PCS; principal; 2019-02-27 08:27)
DX: R57.8 Other shock (principal); J96.01 Acute respiratory failure with hypoxia; S22.20XA Unspecified fracture of sternum, initial encounter for closed fracture; D62 Acute posthemorrhagic anemia; R04.0 Epistaxis; I95.1 Orthostatic hypotension; E11.65 Type 2 diabetes mellitus with hyperglycemia; I25.10 Atherosclerotic heart disease of native coronary artery without angina pectoris; K21.9 Gastro-esophageal reflux disease without esophagitis; E78.00 Pure hypercholesterolemia, unspecified; S02.2XXA Fracture of nasal bones, initial encounter for closed fracture; G47.33 Obstructive sleep apnea (adult) (pediatric); J30.9 Allergic rhinitis, unspecified; D69.6 Thrombocytopenia, unspecified; I65.02 Occlusion and stenosis of left vertebral artery; R41.3 Other amnesia; I45.10 Unspecified right bundle-branch block; K76.0 Fatty (change of) liver, not elsewhere classified; R29.6 Repeated falls; J34.2 Deviated nasal septum; R91.1 Solitary pulmonary nodule; J44.9 Chronic obstructive pulmonary disease, unspecified; J84.10 Pulmonary fibrosis, unspecified; Z79.4 Long term (current) use of insulin; Z98.41 Cataract extraction status, right eye; Z96.1 Presence of intraocular lens; Z98.42 Cataract extraction status, left eye; Z79.899 Other long term (current) drug therapy; Z98.1 Arthrodesis status; Z87.891 Personal history of nicotine dependence; W18.09XA Striking against other object with subsequent fall, initial encounter; Y92.9 Unspecified place or not applicable